=== PATIENT | female | born 1935 | race Caucasian/White ===

== ENCOUNTER 2019-07-04 10:06 | Observation (INO) | payer MEDICARE, BC, SELFPAY ==
[2019-07-04] VITALS (8 sets, daily range): BP systolic 109–140; BP diastolic 56–70; PULSE 66–97; RESP 14–20; TEMP 36.2–37.6; O2SAT 93–98; BMI 20.5
--- NOTE | 2019-07-04 11:18 | ED_ITS ---
HPI - Skin/Abscess/Foreign Bdy <Yulia Vu, [employer] - Last Filed: 07/04/19 16:58> General Chief complaint: Skin/Abscess/Foreign Body Stated complaint: cat bite Time Seen by Provider: 07/04/19 10:08 Source: patient and family Mode of arrival: Ambulatory Limitations: no limitations History of Present Illness HPI narrative: The patient is an 84-year-old female nonsmoker with history of atrial fibrillation on Coumadin who presents with a chief complaint of a cat bite. She had a cat bite on , went to an outside facility on Saturday and was started on Augmentin. She has had 3 doses of Augmentin. She presents because she is concerned about streaking up her arm. The bite is on her wrist, and she has streaking up to assisted up her bicep, which she finds very concerning. She does have some transient nausea, denies any fevers vomiting or diarrhea. She states that her last tetanus was 3 years ago. She states her wrist is swollen, painful, she would like IV antibiotics. The cat is up-to-date on vaccinations. Related Data Home Medications Medication Instructions Recorded Confirmed Daliresp 250 mg PO QDAY #0 06/13/17 07/04/19 Dulera 2 puff INH BID #0 06/13/17 07/04/19 Premarin 0.5 kenan VAGINAL SEE INSTRUCTIONS #0 06/13/17 07/04/19 albuterol sulfate [Proventil HFA] 1 - 2 puff INH Q4HP PRN #0 06/13/17 07/04/19 alprazolam 0.5 mg PO QDAY #0 06/13/17 07/04/19 cetirizine 10 mg PO PRN PRN #0 06/13/17 07/04/19 cholecalciferol (vitamin D3) 2 cap PO QDAY #0 06/13/17 07/04/19 [Vitamin D3] lovastatin 20 mg PO QDAY #0 06/13/17 07/04/19 magnesium oxide 400 mg PO DAILY #0 06/13/17 07/04/19 methylsulfonylmethane 500 mg PO QDAY #0 06/13/17 07/04/19 metoprolol tartrate 37.5 mg PO QDAY #0 06/13/17 07/04/19 multivitamin [Multiple Vitamins] 1 tab PO QDAY #0 06/13/17 07/04/19 nifedipine 15 mg PO QDAY #0 06/13/17 07/04/19 potassium chloride [Klor-Con M20] 20 meq PO BIDCC #0 06/13/17 07/04/19 triamterene-hydrochlorothiazid 1.5 tab PO QDAY #0 06/13/17 07/04/19 warfarin [Coumadin] 5 mg PO DAILY #0 06/13/17 07/04/19 Allergies Allergy/AdvReac Type Severity Reaction Status Date / Time amoxicillin [AMOXICILLIN] Allergy Unknown Verified 07/04/19 12:36 erythromycin base Allergy Unknown Verified 07/04/19 12:36 [ERYTHROMYCIN BASE] levofloxacin [From LEVAQUIN] Allergy Unknown Verified 07/04/19 12:36 Review of Systems <CRISTINE Borrego - Last Filed: 07/04/19 16:58> Review of Systems Narrative: GENERAL: See HPI HEENT: Denies sinus pain, ear pain, sore throat, difficulty swallowing, dizziness. RESPIRATORY: Denies dyspnea, cough, wheezing, hemoptysis, sputum. CARDIOVASCULAR: Denies chest pain, palpitations, orthopnea, edema, GASTROINTESTINAL: See HPI : Denies dysuria, frequency, incontinence, hematuria, urinary retention. MUSCULOSKELETAL: See HPI SKIN: See HPI NEUROLOGIC: Denies weakness, headache, numbness, change in speech, confusion, seizures, incoordination. PSYCHIATRIC: No concerning psychosocial issues. 12 point review of systems is negative except for those stated above Patient History <CRISTINE Borrego - Last Filed: 07/04/19 16:58> Social History household members: none Smoking Status: Former smoker alcohol intake: current Substance Use Type: does not use Exam <CRISTINE Borrego - Last Filed: 07/04/19 16:58> Narrative Exam Narrative: GENERAL: This is a well-nourished, well-developed patient, in no acute distress HEAD: Atraumatic. Normocephalic. No temporal or scalp tenderness. EYES: Pupils equal round and reactive. Extraocular motions intact. No scleral icterus. No injection or drainage. ENT: Nose without bleeding, purulent drainage or septal hematoma. Throat without erythema, tonsillar hypertrophy or exudate. Uvula midline. Airway patent. NECK: Trachea midline. No JVD or lymphadenopathy. Supple, nontender, no meningeal signs. CARDIOVASCULAR: Regular rate and irregular rhythm RESPIRATORY: Clear to auscultation. Breath sounds equal bilaterally. No wheezes, rales, or rhonchi. No cough. No increased respiratory effort. No accessory muscle use. GASTROINTESTINAL: Abdomen soft, non-tender, nondistended. No hepato- splenomegaly, or palpable masses. No guarding. EXTREMITIES: Right wrist has decreased range of motion, decreased flexion and extension. Positive radial pulse. See skin exam. BACK: Nontender without deformity or crepitance. No flank tenderness. NEURO: AOx3. SKIN: Patient has a 1 cm laceration on dorsum of right wrist, no palpable abscess or fluctuance. 10 cm of surrounding erythema, as well as an 10 cm extending up to mid right upper arm along a vein on anterior side. Profuse ecchymosis noted. Initial Vital Signs Initial Vital Signs: Vital Signs Temperature 98.4 F 07/04/19 10:44 Pulse Rate 66 07/04/19 10:44 Respiratory Rate 14 07/04/19 10:44 Blood Pressure 140/70 07/04/19 10:44 Pulse Oximetry 98 07/04/19 10:44 <Raz Amaya DO - Last Filed: 07/04/19 18:27> Initial Vital Signs Initial Vital Signs: Vital Signs Temperature 98.4 F 07/04/19 10:44 Pulse Rate 66 07/04/19 10:44 Respiratory Rate 14 07/04/19 10:44 Blood Pressure 140/70 07/04/19 10:44 Pulse Oximetry 98 07/04/19 10:44 Course <AKANKSHA BorregoBC - Last Filed: 07/04/19 16:58> Orders Ordered: ED Orders 07/04/19 12:07 CT UE RT w con Stat 07/04/19 12:30 Blood Culture Stat Complete Blood Count AUTO DIFF Stat Comprehensive Metabolic Panel Stat Partial Thromboplastin Time Stat Procalcitonin Stat Prothrombin Time INR Stat Acetaminophen (Tylenol) 650 mg PO Q6HR PRN PRN Reason: Fever/Mild Pain (1-3) Albuterol/Ipratropium (Duoneb) 3 ml INH RTQID [facility] Alprazolam (Xanax) 0.5 mg PO DAILY [facility] Budesonide (Pulmicort) 0.5 mg INH RTBID [facility] Meropenem (Merrem) 1 gm in 50 mls @ 100 mls/hr IV Q12H [facility] Last Admin: 07/04/19 16:11 Dose: 100 mls/hr Documented by: ROSS Lovastatin (Mevacor) 20 mg PO 1700 [facility] Metoprolol Tartrate (Lopressor) 37.5 mg PO DAILY [facility] Morphine Sulfate (Morphine) 2 mg IV Q4HR PRN PRN Reason: Pain, Moderate (4-6) Multivitamins (Tab-A-Abdon) 1 tab PO DAILY [facility] Nifedipine (Procardia Xl) 30 mg PO 0700 [facility] Roflumilast [ (Daliresp] 250 Mg) 250 mg PO DAILY [facility] Potassium Chloride (Klor-Con M20) 20 meq PO BIDWM [facility] Triamterene/HCTZ (Maxide 37.5/25) 1.5 tab PO DAILY [facility] Discontinued Medications Metronidazole (Flagyl) 500 mg in 100 mls @ 100 mls/hr IV NOW ONE Stop: 07/04/19 15:39 Last Admin: 07/04/19 16:01 Dose: Not Given Documented by: ROSS Piperacillin/Tazobactam/Dextrose (Zosyn) 3.375 gm in 50 mls @ 100 mls/hr IV NOW ONE Stop: 07/04/19 15:13 Last Infusion: 07/04/19 15:56 Dose: 0 mls/hr Documented by: Admin: 07/04/19 15:15 Dose: 100 mls/hr Documented by: ELI Morphine Sulfate (Morphine) 2 mg IV NOW ONE Stop: 07/04/19 12:09 Last Admin: 07/04/19 12:36 Dose: 2 mg Documented by: ELI Nifedipine (Procardia Xl) 15 mg PO 0700 [facility] Non-Formulary Medication (Mometasone-Formoterol [Dulera]) 2 puff INH BID [facility] Ondansetron HCl (Zofran) 4 mg IV NOW ONE Stop: 07/04/19 12:09 Last Admin: 07/04/19 12:36 Dose: 4 mg Documented by: ELI Phytonadione (Mephyton) 10 mg PO NOW ONE Stop: 07/04/19 14:47 Last Admin: 07/04/19 15:15 Dose: 10 mg Documented by: ELI Vital Signs Vital signs: Vital Signs - 8 hr 07/04/19 10:44 07/04/19 12:53 Temperature 98.4 F Pulse Rate 66 75 Respiratory Rate 14 18 Blood Pressure 140/70 Blood Pressure [Left Arm] 109/56 L Pulse Oximetry 98 93 <Raz Amaya, - Last Filed: 07/04/19 18:27> Orders Ordered: ED Orders 07/04/19 12:07 CT UE RT w con Stat 07/04/19 12:30 Blood Culture Stat Complete Blood Count AUTO DIFF Stat Comprehensive Metabolic Panel Stat Partial Thromboplastin Time Stat Procalcitonin Stat Prothrombin Time INR Stat Acetaminophen (Tylenol) 650 mg PO Q6HR PRN PRN Reason: Fever/Mild Pain (1-3) Albuterol/Ipratropium (Duoneb) 3 ml INH RTQID [facility] Alprazolam (Xanax) 0.5 mg PO DAILY [facility] Budesonide (Pulmicort) 0.5 mg INH RTBID [facility] Meropenem (Merrem) 1 gm in 50 mls @ 100 mls/hr IV Q12H [facility] Last Admin: 07/04/19 16:11 Dose: 100 mls/hr Documented by: ROSS Lovastatin (Mevacor) 20 mg PO 1700 [facility] Metoprolol Tartrate (Lopressor) 37.5 mg PO DAILY [facility] Morphine Sulfate (Morphine) 2 mg IV Q4HR PRN PRN Reason: Pain, Moderate (4-6) Multivitamins (Tab-A-Abdon) 1 tab PO DAILY [facility] Nifedipine (Procardia Xl) 30 mg PO 0700 [facility] Roflumilast [ (Daliresp] 250 Mg) 250 mg PO DAILY [facility] Potassium Chloride (Klor-Con M20) 20 meq PO BIDWM [facility] Triamterene/HCTZ (Maxide 37.5/25) 1.5 tab PO DAILY [facility] Discontinued Medications Metronidazole (Flagyl) 500 mg in 100 mls @ 100 mls/hr IV NOW ONE Stop: 07/04/19 15:39 Last Admin: 07/04/19 16:01 Dose: Not Given Documented by: ROSS Piperacillin/Tazobactam/Dextrose (Zosyn) 3.375 gm in 50 mls @ 100 mls/hr IV NOW ONE Stop: 07/04/19 15:13 Last Infusion: 07/04/19 15:56 Dose: 0 mls/hr Documented by: Admin: 07/04/19 15:15 Dose: 100 mls/hr Documented by: ELI Morphine Sulfate (Morphine) 2 mg IV NOW ONE Stop: 07/04/19 12:09 Last Admin: 07/04/19 12:36 Dose: 2 mg Documented by: ELI Nifedipine (Procardia Xl) 15 mg PO 0700 [facility] Non-Formulary Medication (Mometasone-Formoterol [Dulera]) 2 puff INH BID [facility] Ondansetron HCl (Zofran) 4 mg IV NOW ONE Stop: 07/04/19 12:09 Last Admin: 07/04/19 12:36 Dose: 4 mg Documented by: ELI Phytonadione (Mephyton) 10 mg PO NOW ONE Stop: 07/04/19 14:47 Last Admin: 07/04/19 15:15 Dose: 10 mg Documented by: ELI Vital Signs Vital signs: Vital Signs - 8 hr 07/04/19 10:44 07/04/19 12:53 Temperature 98.4 F Pulse Rate 66 75 Respiratory Rate 14 18 Blood Pressure 140/70 Blood Pressure [Left Arm] 109/56 L Pulse Oximetry 98 93 MDM - Skin/Abscess/Foreign Bdy <MARYANNE Borrego- - Last Filed: 07/04/19 16:58> Lab Data Result diagrams: 07/04/19 12:30 07/04/19 12:30 Labs: Lab Results 07/04/19 07/04/19 07/04/19 Range/Units 12:30 12:30 12:30 WBC 10.7 (4.5-11.0) X10^3/uL RBC 4.08 (4.0-5.2) X10^6/uL Hgb 12.1 (12.0-16.0) g/dL Hct 36.9 (36-46) % MCV 90.4 (80-100) fL MCH 29.7 (26-34) PG MCHC 32.9 (30-36) % RDW 13.2 (11.6-14.8) % Plt Count 189 (150-400) X10^3/uL Neut % (Auto) 85.7 H (50-75) % Lymph % (Auto) 6.7 L (25-40) % Dickenson % (Auto) 6.9 (3-14) % Eos % (Auto) 0.3 L (2-4) % Baso % (Auto) 0.4 (0-2) % Neut # (Auto) 9200 H (0004-0012) /uL Lymph # (Auto) 700 L (9644-2497) /uL Dickenson # (Auto) 700 (0-900) /uL Eos # (Auto) 0 (0-450) /uL Baso # (Auto) 0 (0-100) /uL PT 43.4 H (10.1-12.7) SECONDS INR 3.8 H (0.9-1.3) APTT 48 H (26.4-36.2) SECONDS Sodium (137-145) mmol/L Potassium (3.4-5.1) mmol/L Chloride (98-107) mmol/L Carbon Dioxide (22-32) mmol/L BUN (7-17) mg/dL Creatinine (0.52-1.04) mg/dL Estimated GFR (>60) mL/min BUN/Creatinine Ratio (6-22) Glucose (80-110) mg/dL Calcium (8.4-10.2) mg/dL Total Bilirubin (0.2-1.3) mg/dL AST (14-36) IU/L ALT (<35) IU/L Alkaline Phosphatase (38-126) U/L Total Protein (6.3-8.2) g/dL Albumin (3.5-5.0) g/dL Globulin (1.7-4.1) g/dL Albumin/Globulin Ratio (1.0-2.8) Procalcitonin 0.18 (<0.5) ng/mL 07/04/19 Range/Units 12:30 WBC (4.5-11.0) X10^3/uL RBC (4.0-5.2) X10^6/uL Hgb (12.0-16.0) g/dL Hct (36-46) % MCV (80-100) fL MCH (26-34) PG MCHC (30-36) % RDW (11.6-14.8) % Plt Count (150-400) X10^3/uL Neut % (Auto) (50-75) % Lymph % (Auto) (25-40) % Dickenson % (Auto) (3-14) % Eos % (Auto) (2-4) % Baso % (Auto) (0-2) % Neut # (Auto) (1125-9252) /uL Lymph # (Auto) (1314-8114) /uL Dickenson # (Auto) (0-900) /uL Eos # (Auto) (0-450) /uL Baso # (Auto) (0-100) /uL PT (10.1-12.7) SECONDS INR (0.9-1.3) APTT (26.4-36.2) SECONDS Sodium 136 L (137-145) mmol/L Potassium 4.1 (3.4-5.1) mmol/L Chloride 101 (98-107) mmol/L Carbon Dioxide 25 (22-32) mmol/L BUN 37 H (7-17) mg/dL Creatinine 1.10 H (0.52-1.04) mg/dL Estimated GFR 47.3 L (>60) mL/min BUN/Creatinine Ratio 33.6 H (6-22) Glucose 97 (80-110) mg/dL Calcium 10.1 (8.4-10.2) mg/dL Total Bilirubin 0.7 (0.2-1.3) mg/dL AST 33 (14-36) IU/L ALT 21 (<35) IU/L Alkaline Phosphatase 73 (38-126) U/L Total Protein 7.5 (6.3-8.2) g/dL Albumin 3.9 (3.5-5.0) g/dL Globulin 3.6 (1.7-4.1) g/dL Albumin/Globulin Ratio 1.1 (1.0-2.8) Procalcitonin (<0.5) ng/mL Imaging Data extremity ct : Radiologist's Impression: [address] [place] [id number] Scan Report Signed Patient: Becka Amanda BMR#: [id number] : 5Acct:[id number] Age/Sex: 84 / FDate of Service: 07/04/19 Loc: ED Accession Number: [id number] Procedure: CT UE RT w con Ordering Provider: Yulia Vu PROCEDURE: CT UE RT W CON INDICATIONS: cat bite, worsening TECHNIQUE: After the administration of intravenous contrast, 3 mm axial sections acquired of the left upper extremity from the level of the elbow to the hand, with coronal and sagittal reformats. COMPARISON: None. FINDINGS: Image quality: Diagnostic. Bones: No acute, dislocation, or suspicious osseous lesion is identified involving the osseous structures of the forearm or hand. Additionally, the imaged portions of the elbow are unremarkable. No definite osseous erosions are appreciated. Severe degenerative changes are noted involving the basal joint of the thumb with additional areas of [id number] degenerative change involving the metacarpal phalangeal and interphalangeal joints of the hand. Soft tissues: Moderate subcutaneous edema is identified diffusely throughout the forearm. A small amount of loculated fluid may be present at the level of the wrist, which could potentially be located within some of the extensor tendon sheaths of the wrist. This loculated fluid measures in conglomeration approximately 2.2 x 0.3 x 1.1 cm (image 309, series 6 and image 91, series 3). Prominent subcutaneous vessels are evident throughout, which may represent varicose veins. No definite radiopaque foreign bodies are appreciated. Please note that the ligamentous, tendinous, and cartilaginous structures of the elbow and wrist are not adequately characterized on CT. Chondrocalcinosis of the wrist is noted. IMPRESSION: 1. Subcutaneous edema of the right forearm and hand is suspicious for cellulitis. 2. Small collection of fluid along the dorsal aspect of the wrist may represent a developing abscess or could also potentially represent tenosynovitis involving the extensor tendons of the wrist. The need for dedicated MR imaging of the wrist with contrast may be determined clinically. 3. No acute fractures. 4. Moderate to severe degenerative changes of the wrist and hand. 5. 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 However, clinical correlat ion to exclude calcium pyro-phosphate deposition disease is recommended. Dictated by: Bertrand Low M.D. on 07/04/2019 at 12:57 Approved by: Bertrand Low M.D. on 07/04/2019 at 13:02 [facility] Narrative Medical decision making narrative: The patient is an 84-year-old female who presents with a chief complaint of a cat bite that is failing outpatient therapy. She complains of profuse pain and swelling, as well as extending redness. The patient has taken 3 doses of Augmentin prior to arrival to the emergency department. She denies any systemic symptoms, has no leukocytosis, however exam is very concerning. CT illustrate possible sepsis and or tenosynovitis. Dr. Churchill from [facility] was consulted down to evaluate the patient. Patient is noted to be on Coumadin with an elevated INR. Patient was started on antibiotics in the emergency department. Dr. Green was contacted for admission and kindly agreed to admit patient. Patient was given 10 mg p.o. vitamin K in the emergency department as per hospitalist recommendations. Patient expresses gratitude regarding admission and has no que stions or concerns upon this time. Her tetanus is up-to-date. She was given pain medicine and nausea medicine in the emergency department to help make her more comfortable. <Raz Amaya, DO - Last Filed: 07/04/19 18:27> Lab Data Labs: Lab Results 07/04/19 07/04/19 07/04/19 Range/Units 12:30 12:30 12:30 WBC 10.7 (4.5-11.0) X10^3/uL RBC 4.08 (4.0-5.2) X10^6/uL Hgb 12.1 (12.0-16.0) g/dL Hct 36.9 (36-46) % MCV 90.4 (80-100) fL MCH 29.7 (26-34) PG MCHC 32.9 (30-36) % RDW 13.2 (11.6-14.8) % Plt Count 189 (150-400) X10^3/uL Neut % (Auto) 85.7 H (50-75) % Lymph % (Auto) 6.7 L (25-40) % Dickenson % (Auto) 6.9 (3-14) % Eos % (Auto) 0.3 L (2-4) % Baso % (Auto) 0.4 (0-2) % Neut # (Auto) 9200 H (0393-7581) /uL Lymph # (Auto) 700 L (0766-7731) /uL Dickenson # (Auto) 700 (0-900) /uL Eos # (Auto) 0 (0-450) /uL Baso # (Auto) 0 (0-100) /uL PT 43.4 H (10.1-12.7) SECONDS INR 3.8 H (0.9-1.3) APTT 48 H (26.4-36.2) SECONDS Sodium (137-145) mmol/L Potassium (3.4-5.1) mmol/L Chloride (98-107) mmol/L Carbon Dioxide (22-32) mmol/L BUN (7-17) mg/dL Creatinine (0.52-1.04) mg/dL Estimated GFR (>60) mL/min BUN/Creatinine Ratio (6-22) Glucose (80-110) mg/dL Calcium (8.4-10.2) mg/dL Total Bilirubin (0.2-1.3) mg/dL AST (14-36) IU/L ALT (<35) IU/L Alkaline Phosphatase (38-126) U/L Total Protein (6.3-8.2) g/dL Albumin (3.5-5.0) g/dL Globulin (1.7-4.1) g/dL Albumin/Globulin Ratio (1.0-2.8) Procalcitonin 0.18 (<0.5) ng/mL 07/04/19 Range/Units 12:30 WBC (4.5-11.0) X10^3/uL RBC (4.0-5.2) X10^6/uL Hgb (12.0-16.0) g/dL Hct (36-46) % MCV (80-100) fL MCH (26-34) PG MCHC (30-36) % RDW (11.6-14.8) % Plt Count (150-400) X10^3/uL Neut % (Auto) (50-75) % Lymph % (Auto) (25-40) % Dickenson % (Auto) (3-14) % Eos % (Auto) (2-4) % Baso % (Auto) (0-2) % Neut # (Auto) (0495-1279) /uL Lymph # (Auto) (7782-2832) /uL Dickenson # (Auto) (0-900) /uL Eos # (Auto) (0-450) /uL Baso # (Auto) (0-100) /uL PT (10.1-12.7) SECONDS INR (0.9-1.3) APTT (26.4-36.2) SECONDS Sodium 136 L (137-145) mmol/L Potassium 4.1 (3.4-5.1) mmol/L Chloride 101 (98-107) mmol/L Carbon Dioxide 25 (22-32) mmol/L BUN 37 H (7-17) mg/dL Creatinine 1.10 H (0.52-1.04) mg/dL Estimated GFR 47.3 L (>60) mL/min BUN/Creatinine Ratio 33.6 H (6-22) Glucose 97 (80-110) mg/dL Calcium 10.1 (8.4-10.2) mg/dL Total Bilirubin 0.7 (0.2-1.3) mg/dL AST 33 (14-36) IU/L ALT 21 (<35) IU/L Alkaline Phosphatase 73 (38-126) U/L Total Protein 7.5 (6.3-8.2) g/dL Albumin 3.9 (3.5-5.0) g/dL Globulin 3.6 (1.7-4.1) g/dL Albumin/Globulin Ratio 1.1 (1.0-2.8) Procalcitonin (<0.5) ng/mL Discharge Plan Departure Patient Disposition: Admitted as Observation Clinical Impression: Cat bite Qualifiers: Encounter type: initial encounter Qualified Code(s): W55.01XA - Bitten by cat, initial encounter Cellulitis Qualifiers: Site of cellulitis: extremity Site of cellulitis of extremity: upper extremity Laterality: right Qualified Code(s): L03.113 - Cellulitis of right upper limb Discharge Date/Time: 07/04/19 15:50 Admit Date/Time: 07/04/19 14:49 Admit Provider: Marcellus Green
--- NOTE | 2019-07-04 12:07 | DI.CT.S_ITS ---
PROCEDURE: CT UE RT W CON INDICATIONS: cat bite, worsening TECHNIQUE: After the administration of intravenous contrast, 3 mm axial sections acquired of the left upper extremity from the level of the elbow to the hand, with coronal and sagittal reformats. COMPARISON: None. FINDINGS: Image quality: Diagnostic. Bones: No acute, dislocation, or suspicious osseous lesion is identified involving the osseous structures of the forearm or hand. Additionally, the imaged portions of the elbow are unremarkable. No definite osseous erosions are appreciated. Severe degenerative changes are noted involving the basal joint of the thumb with additional areas of [id number] degenerative change involving the metacarpal phalangeal and interphalangeal joints of the hand. Soft tissues: Moderate subcutaneous edema is identified diffusely throughout the forearm. A small amount of loculated fluid may be present at the level of the wrist, which could potentially be located within some of the extensor tendon sheaths of the wrist. This loculated fluid measures in conglomeration approximately 2.2 x 0.3 x 1.1 cm (image 309, series 6 and image 91, series 3). Prominent subcutaneous vessels are evident throughout, which may represent varicose veins. No definite radiopaque foreign bodies are appreciated. Please note that the ligamentous, tendinous, and cartilaginous structures of the elbow and wrist are not adequately characterized on CT. Chondrocalcinosis of the wrist is noted. IMPRESSION: 1. Subcutaneous edema of the right forearm and hand is suspicious for cellulitis. 2. Small collection of fluid along the dorsal aspect of the wrist may represent a developing abscess or could also potentially represent tenosynovitis involving the extensor tendons of the wrist. The need for dedicated MR imaging of the wrist with contrast may be determined clinically. 3. No acute fractures. 4. Moderate to severe degenerative changes of the wrist and hand. 5. 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 However, clinical correlation to exclude calcium pyro-phosphate deposition disease is recommended. Dictated by: Bertrand Low M.D. on 07/04/2019 at 12:57 Approved by: Bertrand Low M.D. on 07/04/2019 at 13:02
[2019-07-04] MEDS: ONDANSETRON 4 MG/2 ML INJ IV (12:36)
[2019-07-04] MEDS: MORPHINE 2 MG/ML INJ IV (12:36)
[2019-07-04 12:40] LABS: Add Manual Diff / Slide Review NO; Basophils Absolute Auto 0 /uL (0-100); Basophils Percent Auto 0.4 % (0-2); Eosinophils Absolute Auto 0 /uL (0-450); Eosinophils Percent Auto 0.3 % (2-4); Hematocrit 36.9 % (36-46); Hemoglobin 12.1 g/dL (12.0-16.0); Lymphocytes Absolute Auto 700 /uL (1100-4500); Lymphocytes Percent Auto 6.7 % (25-40); Mean Corpuscular HGB Conc 32.9 % (30-36); Mean Corpuscular Hemoglobin 29.7 PG (26-34); Mean Corpuscular Volume 90.4 fL (80-100); Monocytes Absolute Auto 700 /uL (0-900); Monocytes Percent Auto 6.9 % (3-14); Neutrophils Absolute Auto 9200 /uL (1500-7000); Neutrophils Percent Auto 85.7 % (50-75); Platelet Count 189 X10^3/uL (150-400); Red Blood Cell Count 4.08 X10^6/uL (4.0-5.2); Red Cell Distribution Width 13.2 % (11.6-14.8); White Blood Cell Count 10.7 X10^3/uL (4.5-11.0)
[2019-07-04 12:52] LABS: INR 3.8 (0.9-1.3); Prothrombin Time 43.4 SECONDS (10.1-12.7)
[2019-07-04 12:55] LABS: Alanine Aminotransferase 21 IU/L (<35); Albumin 3.9 g/dL (3.5-5.0); Albumin Globulin Ratio 1.1 (1.0-2.8); Alkaline Phosphatase 73 U/L (38-126); Aspartate Aminotransferase 33 IU/L (14-36); BUN Creatinine Ratio 33.6 (6-22); Bilirubin Total 0.7 mg/dL (0.2-1.3); Blood Urea Nitrogen 37 mg/dL (7-17); Calcium 10.1 mg/dL (8.4-10.2); Carbon Dioxide 25 mmol/L (22-32); Chloride 101 mmol/L (98-107); Estimated Glomerular Filt Rate 47.3 mL/min (>60); Globulin 3.6 g/dL (1.7-4.1); Glucose 97 mg/dL (80-110); HEMOLYSIS < 15 (0-50); PTT Partial Thromboplastin Tim 48 SECONDS (26.4-36.2); Potassium 4.1 mmol/L (3.4-5.1); Sodium 136 mmol/L (137-145); Total Protein 7.5 g/dL (6.3-8.2)
[2019-07-04 13:17] LABS: Procalcitonin 0.18 ng/mL (<0.5)
--- NOTE | 2019-07-04 14:41 | PC.NURSE ---
Patient was bit by cat two nights ago on right wrist. Seen at [facility] and given Augmentin. Today returns after two doses of antibiotics and right arm is red and swollen up to elbow.
--- NOTE | 2019-07-04 14:57 | P.HP_ITS ---
History of Present Illness History of Present Illness Date Patient Seen: 07/04/19 Time Patient Seen: 14:41 Chief complaint: cat bite Narrative: This is a pleasant 84-year-old female who sustained a bite to her right arm from her Cat. She was seen yesterday and given antibiotics. She notes that it is getting worse with increased redness and some streaking up her right arm. She notes that the CT is known to her and is up-to-date on its shots. The CAT has a history of biting her in the past. She says that the CT no longer lives with her. She has a history of atrial fibrillation and is chronically on Coumadin. She notes that her INR was reportedly 2.5 yesterday. Patient History Family & Social History Safety & Behavioral: Feels Safe in Current Yes Environment Tobacco & Substance use: Substance Use Type does not use Meds Home Medications and Allergies Home Medications Medication Instructions Recorded Confirmed Type albuterol sulfate [Proventil HFA] 1 - 2 puff INH Q4HP PRN #0 06/13/17 History alprazolam 0.5 mg PO QDAY #0 06/13/17 History cetirizine PO PRN PRN #0 06/13/17 History cholecalciferol (vitamin D3) 2 cap PO QDAY #0 06/13/17 History [Vitamin D3] conjugated estrogens [Premarin] 0.5 kenan VAGINAL SEE INSTRUCTIONS #0 06/13/17 History doxycycline hyclate 100 mg PO #0 06/13/17 History lovastatin 20 mg PO QDAY #0 06/13/17 History magnesium oxide 400 mg PO #0 06/13/17 History methylsulfonylmethane PO QDAY #0 06/13/17 History metoprolol tartrate 37.5 mg PO QDAY #0 06/13/17 History mometasone-formoterol [Dulera] 2 puff INH BID #0 06/13/17 History multivitamin [Multiple Vitamins] 1 tab PO QDAY #0 06/13/17 History nifedipine 15 mg PO QDAY #0 06/13/17 History potassium chloride [Klor-Con M20] 20 meq PO BIDCC #0 06/13/17 History prednisone #0 06/13/17 History ranitidine HCl 150 mg PO BID #0 06/13/17 History roflumilast [Daliresp] 250 mg PO QDAY #0 06/13/17 History triamterene-hydrochlorothiazid 1.5 tab PO QDAY #0 06/13/17 History warfarin [Coumadin] #0 06/13/17 History Allergies Allergy/AdvReac Type Severity Reaction Status Date / Time amoxicillin [AMOXICILLIN] Allergy Unknown Verified 07/04/19 12:36 erythromycin base Allergy Unknown Verified 07/04/19 12:36 [ERYTHROMYCIN BASE] levofloxacin [From LEVAQUIN] Allergy Unknown Verified 07/04/19 12:36 Review of Systems Review of Systems Narrative: Denies fevers or chills recently, notes that she is having increasing right arm pain but does not note significant malaise, she has a history of COPD but does not currently smoke and does not feel short of breath. She has chronic atrial fibrillation but has not had any recent chest pain or palpitations. Denies any recent change in her bowel movements or urination. She is [id number]. Exam Vital Signs (past 8 hours): - 07/04/19 10:44 07/04/19 12:53 Temperature 98.4 F Pulse Rate 66 75 Respiratory Rate 14 18 Blood Pressure 140/70 Blood Pressure [Left Arm] 109/56 L Pulse Oximetry 98 93 Oxygen Delivery Method Room Air Narrative Exam Narrative: HEENT is benign, neck is supple, she is alert she is oriented does not appear to be in severe distressed, lungs are clear, cor is regular, ab domen soft and benign, her right upper extremity shows marked bruising on the dorsum of her right arm with extension into the mid forearm and some slight streaking proximally, there is no significant axillary nodes, she is able to fire finger flexors and extensors she does have some pain with maximum active flexion but no significant weakness, there is obvious swelling on the dorsum of her wrist but not a well collected fluid pouch, there is a transverse laceration on the dorsum of her hand on the ulnar side. There is erythema along the wound edge but no active drainage. Objective Labs Result Diagrams: 07/04/19 12:30 07/04/19 12:30 Labs: Laboratory Results - last 24 hr 07/04/19 07/04/19 07/04/19 12:30 12:30 12:30 WBC 10.7 RBC 4.08 Hgb 12.1 Hct 36.9 MCV 90.4 MCH 29.7 MCHC 32.9 RDW 13.2 Plt Count 189 Neut % (Auto) 85.7 H Lymph % (Auto) 6.7 L [place] % (Auto) 6.9 Eos % (Auto) 0.3 L Baso % (Auto) 0.4 Neut # (Auto) 9200 H Lymph # (Auto) 700 L [place] # (Auto) 700 Eos # (Auto) 0 Baso # (Auto) 0 PT 43.4 H INR 3.8 H APTT 48 H Sodium Potassium Chloride Carbon Dioxide BUN Creatinine Estimated GFR BUN/Creatinine Ratio Glucose Calcium Total Bilirubin AST ALT Alkaline Phosphatase Total Protein Albumin Globulin Albumin/Globulin Ratio Procalcitonin 0.18 07/04/19 12:30 WBC RBC Hgb Hct MCV MCH MCHC RDW Plt Count Neut % (Auto) Lymph % (Auto) [place] % (Auto) Eos % (Auto) Baso % (Auto) Neut # (Auto) Lymph # (Auto) [place] # (Auto) Eos # (Auto) Baso # (Auto) PT INR APTT Sodium 136 L Potassium 4.1 Chloride 101 Carbon Dioxide 25 BUN 37 H Creatinine 1.10 H Estimated GFR 47.3 L BUN/Creatinine Ratio 33.6 H Glucose 97 Calcium 10.1 Total Bilirubin 0.7 AST 33 ALT 21 Alkaline Phosphatase 73 Total Protein 7.5 Albumin 3.9 Globulin 3.6 Albumin/Globulin Ratio 1.[address] scan show soft tissue swelling of her right arm but no well loculated abscess. No significant gas formation. Assessment & Plan Assessment & Plan narrative: Right upper extremity cat bite with cellulitis but no abscess at this point which required surgical drainage, chronic atrial fibrillation with chronic Coumadin it is a [facility] over anticoagulated with substantial bruising in the right upper extremity. Recomm endations and plan I have recommended that she be admitted for IV antibiotics and observation. I told the patient that she likely will respond to IV antibiotics and observation but if she develops evidence of a fluid collection or a progressive abscess formation she may require irrigation and debridement. I discussed her with the hospitalist and were going to attempt to pick an antibiotic but does not severely interfere with her anticoagulation status and is appropriate for a cat bite. I will re-evaluate her tomorrow unless she has acute worsening.
[2019-07-04] MEDS: PHYTONADIONE (VIT K1) 5 MG TABLET 10 MG PO (15:15)
[2019-07-04] MEDS: PIPERACILLIN-TAZO 3.375 GM/50 ML FROZ.PIGGY IV (15:15)
--- NOTE | 2019-07-04 15:58 | PM.HP.1 ---
History of Present Illness History of Present Illness Date Patient Seen: 07/04/19 Time Patient Seen: 16:02 Chief complaint: cat bite Narrative: Becka Amanda is an 84 year old female with severe COPD (on home O2 at night only), raynaud's, HTN, afib on coumadin who presented with worsening swelling in her right arm. Patient states that she suffered a cat bite 2 days ago. She went to an outside ER, who gave her Augmentin and discharged her home. She has a previous history of a cat bite requiring IV antibiotics. She took her Augmentin but the swelling continued to increase, ultimately up past her right elbow and down to her fingers, while the bite is on the forearm. Her cat is up-to-date on vaccinations. She does complain of decreased flexion in her fingers, but no numbness or tingling. There is marked swelling and redness. She denies any fevers or chills. She was nauseous on the drive to the emergency room, but did not have any emesis. She denies any abdominal pain, dysuria or urinary frequency. She denies any chest pain. She has no worsening or acute shortness of breath, but she is chronically short of breath and has difficulty going up any stairs at all due to her COPD. In the ER, she was mildly hypertensive but otherwise her vital signs were unremarkable. Her blood pressure has improved as well with pain control. She had a CT scan of her right upper extremity which showed a small collection of fluid along the dorsal aspect of the wrist may represent a developing abscess or could also potentially represent tenosynovitis involving the extensor tendons of the wrist. The need for dedicated MR imaging of the wrist with contrast may be determined clinically.She was seen by Dr. Churchill orthopedic surgery, who recommended admission for IV antibiotics as well as vitamin K for her elevated INR and potentially may take the patient to the operating room tomorrow. Patient History Family & Social History Safety & Behavioral: Feels Safe in Current Yes Environment Tobacco & Substance use: Substance Use Type does not use Meds Home Medications and Allergies Home Medications Medication Instructions Recorded Confirmed Type Daliresp 250 mg PO QDAY #0 06/13/17 07/04/19 History Dulera 2 puff INH BID #0 06/13/17 07/04/19 History Premarin 0.5 kenan VAGINAL SEE INSTRUCTIONS #0 06/13/17 07/04/19 History albuterol sulfate [Proventil HFA] 1 - 2 puff INH Q4HP PRN #0 06/13/17 07/04/19 History alprazolam 0.5 mg PO QDAY #0 06/13/17 07/04/19 History cetirizine 10 mg PO PRN PRN #0 06/13/17 07/04/19 History cholecalciferol (vitamin D3) 2 cap PO QDAY #0 06/13/17 07/04/19 History [Vitamin D3] lovastatin 20 mg PO QDAY #0 06/13/17 07/04/19 History magnesium oxide 400 mg PO DAILY #0 06/13/17 07/04/19 History methylsulfonylmethane 500 mg PO QDAY #0 06/13/17 07/04/19 History metoprolol tartrate 37.5 mg PO QDAY #0 06/13/17 07/04/19 History multivitamin [Multiple Vitamins] 1 tab PO QDAY #0 06/13/17 07/04/19 History nifedipine 15 mg PO QDAY #0 06/13/17 07/04/19 History potassium chloride [Klor-Con M20] 20 meq PO BIDCC #0 06/13/17 07/04/19 History triamterene-hydrochlorothiazid 1.5 tab PO QDAY #0 06/13/17 07/04/19 History warfarin [Coumadin] 5 mg PO DAILY #0 06/13/17 07/04/19 History Allergies Allergy/AdvReac Type Severity Reaction Status Date / Time amoxicillin [AMOXICILLIN] Allergy Unknown Verified 07/04/19 12:36 erythromycin base Allergy Unknown Verified 07/04/19 12:36 [ERYTHROMYCIN BASE] levofloxacin [From LEVAQUIN] Allergy Unknown Verified 07/04/19 12:36 Review of Systems Review of Systems Narrative: All other systems reviewed with the patient and are negative unless otherwise stated. Exam Vital Signs (past 8 hours): - 07/04/19 10:44 07/04/19 12:53 07/04/19 15:47 Temperature 98.4 F Pulse Rate 66 75 74 Respiratory Rate 14 18 20 Blood Pressure 140/70 Blood Pressure [Left Arm] 109/56 L 136/63 Pulse Oximetry 98 93 94 Oxygen Delivery Method Room Air Narrative Exam Narrative: GENERAL APPEARANCE: Well developed, well nourished, elderly female in no acute distress. SKIN: Inspection of the skin reveals a small laceration on her right forearm that is healed. There is no evidence of induration or potential abscess at this time. She does have marked erythema over her right forearm that extends down to her wrist and metacarpal joints up to her right elbow. There is also some tracking of erythema along lymphatic channels up to her rigt armpit. HEENT: The sclerae were anicteric and conjunctivae were pink and moist. Extraocular movements were intact and pupils were equal, round with normal accommodation. External inspection of the ears and nose showed no scars, lesions, or masses. Lips, teeth, and gums showed normal mucosa. The oral mucosa, hard and soft palate, tongue and posterior pharynx were unremarkable. NECK: Supple and symmetric. There was no thyroid enlargement, and no tenderness, or masses were felt. CHEST: Normal AP diameter and normal contour with mildly increased kyphosis. LUNGS: Auscultation of the lungs revealed no wheezes, rhonchi, or rales. CARDIOVASCULAR: There was a regular rate and rhythm without any murmurs, gallops, rubs. Peripheral pulses were 2+ and symmetric. ABDOMEN: Soft and nontender with normal bowel sounds. No ascites was noted. MUSCULOSKELETAL: Very tender over the area of erythema, with warmth. 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 There is mildly diminished flexion in her right four fingers (not including thumb) EXTREMITIES: No cyanosis, clubbing or edema. Right upper extremity as noted above. NEUROLOGIC: Alert and oriented x 3. Normal affect. Gait was normal. Strength is +5/5 in the Upper Extremities and Lower Extremities Bilaterally. Sensation to touch was normal. Objective ECG Impression: No prior EKGs for comparison. There is a right bundle branch block. Is normal sinus rhythm with a rate of 84. She has T-wave inversions in V1 and V2. She also has lateral ST depressions in V5 through V6 and [address] upper extremity: Radiologist's impression: 1. Subcutaneous edema of the right forearm and hand is suspicious for cellulitis. 2. Small collection of fluid along the dorsal aspect of the wrist may represent a developing abscess or could also potentially represent tenosynovitis involving the extensor tendons of the wrist. The need for dedicated MR imaging of the wrist with contrast may be determined clinically. 3. No acute fractures. 4. Moderate to severe degenerative changes of the wrist and hand. 5. 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 However, clinical correlation to exclude calcium pyro-phosphate deposition disease is recommended. Labs Result Diagrams: 07/04/19 12:30 07/04/19 12:30 Labs: Laboratory Results - last 24 hr 07/04/19 07/04/19 07/04/19 12:30 12:30 12:30 WBC 10.7 RBC 4.08 Hgb 12.1 Hct 36.9 MCV 90.4 MCH 29.7 MCHC 32.9 RDW 13.2 Plt Count 189 Neut % (Auto) 85.7 H Lymph % (Auto) 6.7 L [place] % (Auto) 6.9 Eos % (Auto) 0.3 L Baso % (Auto) 0.4 Neut # (Auto) 9200 H Lymph # (Auto) 700 L [place] # (Auto) 700 Eos # (Auto) 0 Baso # (Auto) 0 PT 43.4 H INR 3.8 H APTT 48 H Sodium Potassium Chloride Carbon Dioxide BUN Creatinine Estimated GFR BUN/Creatinine Ratio Glucose Calcium Total Bilirubin AST ALT Alkaline Phosphatase Total Protein Albumin Globulin Albumin/Globulin Ratio Procalcitonin 0.18 07/04/19 12:30 WBC RBC Hgb Hct MCV MCH MCHC RDW Plt Count Neut % (Auto) Lymph % (Auto) [place] % (Auto) Eos % (Auto) Baso % (Auto) Neut # (Auto) Lymph # (Auto) [place] # (Auto) Eos # (Auto) Baso # (Auto) PT INR APTT Sodium 136 L Potassium 4.1 Chloride 101 Carbon Dioxide 25 BUN 37 H Creatinine 1.10 H Estimated GFR 47.3 L BUN/Creatinine Ratio 33.6 H Glucose 97 Calcium 10.1 Total Bilirubin 0.7 AST 33 ALT 21 Alkaline Phosphatase 73 Total Protein 7.5 Albumin 3.9 Globulin 3.6 Albumin/Globulin Ratio 1.1 Procalcitonin Assessment & Plan Assessment & Plan narrative: Becka Amanda is an 84 year old female with severe COPD (on home O2 at night only), raynaud's, HTN, afib on coumadin who presented with worsening swelling in her right arm after a cat bite 2 days ago. She failed outpatient antibiotic therapy with Augmentin, and CT scan did show possible developing abscess. She is admitted for IV antibiotics, with possible orthopedic interventions tomorrow. 1. Right upper extremity cellulitis, acute, present on admission -developed after suffering a cat bite 2 days ago. She was trialed with outpatient Augmentin, but failed this therapy. -CT right upper extremity: Subcutaneous edema of the right forearm and hand is suspicious for cellulitis. Small collection of fluid along the dorsal aspect of the wrist may represent adeveloping abscess or could also potentially represent tenosynovitis involving the extensor tendons of the wrist. The need for dedicated MR imaging of the wrist with contrast may be determined clinically. No acute fractures. Moderate to severe degenerative changes of the wrist and hand. 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 However, clinical correlation to exclude calcium pyro-phosphate deposition disease is recommended. -no leukocytosis on admission, procalcitonin was 0.18. -have selected meropenem at this time given that other antibiotics will interfere with her Coumadin and potentially raise her INR, which would not be ideal going in to a possible surgery tomorrow. Current dosing is 1 g q.12 hours based on her renal function. -appreciate management by Dr. Churchill of orthopedic surgery -NPO at midnight in case of possible operative interventions tomorrow -patient was given 10 mg of vitamin K, and Coumadin will be held. Will repeat INR in the morning. -EKG showing a right bundle branch block with ST depressions in lateral leads, but upright T-waves. Will repeat her EKG to ensure no changes. She denies any chest pain and she does not have any worsening dyspnea on exertion compared to her usual baseline from COPD. -pain control with Tylenol, morphine as needed for severe pain 2. Severe COPD, chronic, stable -patient uses Dulera inhaler at home. Will substitute with DuoNebs and Pulmicort, with albuterol as needed. -respiratory therapy eval and treat -continue home Daliresp, which is non-formulary if patient can bring from home. 3. Supratherapeutic INR, acute, present on admission - -INR 3.8 on admission. Given vitamin K for possible surgical interventions tomorrow. Will hold Coumadin tonight 4. Paroxysmal Atrial fibrillation, chronic, stable -continue home beta-yolanda -hold home Coumadin as noted above - EKG normal sinus rhythm. 5. Elevated creatinine -unknown baseline creatinine, estimated GFR is 47. -continue to renally dose medications as noted above. 6., hypertension, chronic, stable -will hold home triamterene HCTZ for tomorrow in anticipation of possible operative interventions -she is on nifedipine for Raynaud's which will get continued. Her home doses listed as 15 mg, which should not be possible unless she is splitting the tablet. Will continue 30 mg here. Code: Full, however patient does have an advanced directive and does not recall how she marked this. She likes her surrogate decision maker as her son. She states she will have someone bring in her advance directive. Dispo: Admitted as observation at this time, pending operative interventions, and response to antibiotic therapy
[2019-07-04] MEDS: MEROPENEM 1 GM/50 ML PIGGYBACK IV (16:11)
[2019-07-04] MEDS: ALBUTEROL/IPRATROPIUM 3 ML AMPUL INH (19:29)
[2019-07-04] MEDS: BUDESONIDE 0.5 MG/2 ML NEB INH (19:30)
[2019-07-05] VITALS (14 sets, daily range): BP systolic 99–144; BP diastolic 52–80; PULSE 72–137; RESP 16–18; TEMP 36.7–37.5; O2SAT 92–97
[2019-07-05] MEDS: MORPHINE 2 MG/ML INJ IV (01:38)
[2019-07-05] MEDS: ACETAMINOPHEN 325 MG TABLET 650 MG PO ×2 (01:38→20:06)
[2019-07-05] MEDS: METOPROLOL IR 25 MG TABLET 37.5 MG PO ×2 (02:57→10:16)
[2019-07-05] MEDS: MEROPENEM 1 GM/50 ML PIGGYBACK IV ×2 (04:01→15:34)
--- NOTE | 2019-07-05 04:32 | PC.NURSE ---
VSS, lung sounds clear. Patient is on 2 liters O2, which she uses at home at night. Intermittent non productive cough. Patient having some pain on this shift at one point said pain level was 10/10 on R arm. Patient medicated with tylenol 650mg and 2 mg morphine. Patient re-evaluated and pain has improved and she was able to sleep. Discussed using Left arms for BP's since Rgt arm is too sensitive and painful. Patient is on Tele:NS New IV started on this shift, L dorsal wrist/forearm, previous site was compromised. Patient is able to ambulate to bathroom stand by assist. Bed is low and locked, call light within reach, bed alarm on.
[2019-07-05 05:53] LABS: Add Manual Diff / Slide Review NO; Basophils Absolute Auto 0 /uL (0-100); Basophils Percent Auto 0.5 % (0-2); Eosinophils Absolute Auto 100 /uL (0-450); Eosinophils Percent Auto 1.4 % (2-4); Hemoglobin 10.8 g/dL (12.0-16.0); INR 3.2 (0.9-1.3); Lymphocytes Absolute Auto 700 /uL (1100-4500); Lymphocytes Percent Auto 10.4 % (25-40); Mean Corpuscular HGB Conc 33.7 % (30-36); Mean Corpuscular Hemoglobin 30.1 PG (26-34); Mean Corpuscular Volume 89.3 fL (80-100); Monocytes Absolute Auto 600 /uL (0-900); Monocytes Percent Auto 8.9 % (3-14); Neutrophils Absolute Auto 5200 /uL (1500-7000); Neutrophils Percent Auto 78.8 % (50-75); Platelet Count 163 X10^3/uL (150-400); Prothrombin Time 36.1 SECONDS (10.1-12.7); Red Blood Cell Count 3.58 X10^6/uL (4.0-5.2); White Blood Cell Count 6.7 X10^3/uL (4.5-11.0)
[2019-07-05 05:56] LABS: PTT Partial Thromboplastin Tim 43 SECONDS (26.4-36.2)
[2019-07-05 05:58] LABS: BUN Creatinine Ratio 26.4 (6-22); Blood Urea Nitrogen 29 mg/dL (7-17); Carbon Dioxide 25 mmol/L (22-32); Chloride 101 mmol/L (98-107); Estimated Glomerular Filt Rate 47.3 mL/min (>60); Glucose 92 mg/dL (80-110); HEMOLYSIS < 15 (0-50); Magnesium 1.9 mg/dL (1.6-2.3); Potassium 3.9 mmol/L (3.4-5.1); Sodium 134 mmol/L (137-145)
--- NOTE | 2019-07-05 07:52 | RT ---
Patient declined her nebulizer treatments this morning. She said last night they made her cough and her throat sore. She only takes 2 puffs of Dulera at home twice a day. Her breath sounds are clear and diminished. She has taken her oxygen off for the day. She only wears oxygen at night when she is at home. O2 saturations are 94% on room air.No distress noted. Patient got short of breath when she got up to the bathroom. When she got back into bed she was 76% on room air, but recovered in just a couple of minutes.
[2019-07-05] MEDS: POTASSIUM CHLORIDE 20 MEQ TAB PO ×2 (08:26→16:56)
[2019-07-05] MEDS: MULTIVITAMIN 1 TABLET 1 TAB PO (08:26)
--- NOTE | 2019-07-05 09:28 | P.PN_ITS ---
Subjective Subjective Date Patient Seen: 07/05/19 Interval history: Becka Amanda is an 84-year-old female with a past medical history significant for hypertension, atrial fibrillation on warfarin, severe COPD on nocturnal oxygen, and who presented to the ED with worsening swelling in her right arm after she was bitten by her cat bite. The patient is resting in bed comfortably. She reports her right arm cellulitis and associated pain has improved since yesterday. She endorses mild sore throat that she believes is related to postnasal drip. She has no other complaints and denies headache, shortness of breath, chest pain, abdominal pain, nausea, vomiting, fever, chills, dysuria, or diarrhea. She is voiding without difficulty. She has not had a bowel movement since the day prior to admission and a bowel regimen has been implemented. She is up ambulating without assistan ce. Exam Vital Signs (past 8 hours): - 07/05/19 02:00 07/05/19 03:00 07/05/19 06:00 Temperature 98.1 F Pulse Rate 78 Respiratory Rate 16 Blood Pressure 99/52 L Pulse Oximetry 97 97 97 07/05/19 07:28 07/05/19 07:55 Temperature 98.2 F Pulse Rate 82 Respiratory Rate 16 Blood Pressure 117/61 Pulse Oximetry 95 94 Oxygen Delivery Method Room Air Oxygen Flow Rate 1 Narrative Exam Narrative: General: Older female lying in bed and in no acute distress, well-developed, well-nourished, appropriately interactive. HEENT: Normocephalic, atraumatic. External ears without defect. Pupils equal, round, and reactive to light . Anicteric sclerae, moist conjunctivae, and no l id lag. Oropharynx with mild erythema, no exudate, and moist mucosa. Neck: Supple with full range of motion. No jugular venous distension. No bruits. No lymphadenopathy or thyromegaly. Cardiovascular: Regular rate and rhythm without murmurs, rubs, or gallops appreciated Pulmonary: Clear to auscultation bilaterally without crackles, wheezes, or rhonchi. Normal respiratory effort with no use of accessory muscles. Abdomen: Soft, bowel sounds present, nontender, nondistended. No hepatosplenome briana or masses appreciated. Extremities: No clubbing, cyanosis, or edema. Erythema and warmth of dorsal aspect of right hand up to mid forearm with mild tenderness to palpation and bite pk on lateral aspect of right hand. No obvious fluctuant mass or fluid collection. Skin: Normal temperature, turgor, and texture; no rash, ulcers, or subcutaneous nodules appreciated. Neurological: Cranial nerves grossly intact. Psychiatric: Normal mood and affect. Alert and oriented to person, place, and t celsa. Objective Labs Result Diagrams: 07/05/19 05:12 07/05/19 05:12 Labs: Laboratory Results - last 24 hr 07/04/19 07/04/19 07/04/19 12:30 12:30 12:30 WBC 10.7 RBC 4.08 Hgb 12.1 Hct 36.9 MCV 90.4 MCH 29.7 MCHC 32.9 RDW 13.2 Plt Count 189 Neut % (Auto) 85.7 H Lymph % (Auto) 6.7 L [place] % (Auto) 6.9 Eos % (Auto) 0.3 L Baso % (Auto) 0.4 Neut # (Auto) 9200 H Lymph # (Auto) 700 L [place] # (Auto) 700 Eos # (Auto) 0 Baso # (Auto) 0 PT 43.4 H INR 3.8 H APTT 48 H Sodium Potassium Chloride Carbon Dioxide BUN Creatinine Estimated GFR BUN/Creatinine Ratio Glucose Calcium Magnesium Total Bilirubin AST ALT Alkaline Phosphatase Total Protein Albumin Globulin Albumin/Globulin Ratio Procalcitonin 0.18 07/04/19 07/05/19 07/05/19 12:30 05:12 05:12 WBC 6.7 RBC 3.58 L Hgb 10.8 L Hct 32.0 L MCV 89.3 MCH 30.1 MCHC 33.7 RDW 13.0 Plt Count 163 Neut % (Auto) 78.8 H Lymph % (Auto) 10.4 L [place] % (Auto) 8.9 Eos % (Auto) 1.4 L Baso % (Auto) 0.5 Neut # (Auto) 5200 Lymph # (Auto) 700 L [place] # (Auto) 600 Eos # (Auto) 100 Baso # (Auto) 0 PT 36.1 H D INR 3.2 H APTT 43 H D Sodium 136 L Potassium 4.1 Chloride 101 Carbon Dioxide 25 BUN 37 H Creatinine 1.10 H Estimated GFR 47.3 L BUN/Creatinine Ratio 33.6 H Glucose 97 Calcium 10.1 Magnesium Total Bilirubin 0.7 AST 33 ALT 21 Alkaline Phosphatase 73 Total Protein 7.5 Albumin 3.9 Globulin 3.6 Albumin/Globulin Ratio 1.1 Procalcitonin 07/05/19 05:12 WBC RBC Hgb Hct MCV MCH MCHC RDW Plt Count Neut % (Auto) Lymph % (Auto) [place] % (Auto) Eos % (Auto) Baso % (Auto) Neut # (Auto) Lymph # (Auto) [place] # (Auto) Eos # (Auto) Baso # (Auto) PT INR APTT Sodium 134 L Potassium 3.9 Chloride 101 Carbon Dioxide 25 BUN 29 H Creatinine 1.10 H Estimated GFR 47.3 L BUN/Creatinine Ratio 26.4 H Glucose 92 Calcium 9.0 Magnesium 1.9 Total Bilirubin AST ALT Alkaline Phosphatase Total Protein Albumin Globulin Albumin/Globulin Ratio Procalcitonin Assessment & Plan Assessment & Plan narrative: Becka Amanda is an 84-year-old female with a past medical history significant for hypertension, atrial fibrillation on warfarin, severe COPD on nocturnal oxygen, and who presented to the ED with worsening swelling in her right arm after she was bitten by her cat bite. 1. Acute right upper extremity cellulitis, present on admission. Active. -Patient developed worsening cellulitis after a cat bite 2 days ago. She failed outpatient Augmentin. -CT right upper extremity demonstrated subcutaneous edema of the right forearm and hand suspicious for cellulitis with small collection of fluid along the dorsal aspect of the wrist. Moderate to severe degenerative changes of the wrist and hand. 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 However, clinical correlation to exclude calcium pyro-phosphate deposition disease is recommended. -No leukocytosis and procalcitonin negative at 0.18. Continue to monitor WBC daily. -Received vitamin K 10 mg PO x1 in ED to reverse warfarin for possible surgical intervention. Held warfarin. -Continue acetaminophen 650 mg every 6 hours as needed for mild pain and hydrocodone 5-325 mg every 4 hours as needed for moderate to severe pain. Implemented bowel regimen to avoid opiate induced constipation. -Continue to elevate extremity above level of the heart frequently and as much as tolerated. -Continue meropenem 1 g every 12 hours for broad-spectrum antibiotic coverage including anaerobes due to several antibiotic allergic reactions and interference with warfarin metabolism. -Consulted orthopedic surgery, Dr. Churchill, who does not recommend surgical intervention at this time. We appreciate her time and care of the patient. 2. Severe COPD, chronic, present on admission. Stable. -Does not represent acute COPD exacerbation. -Continue home Dulera 2 puffs twice daily, albuterol inhaler 1-2 puffs every 4 hours as needed for shortness of breath and Daliresp if able to bring in from home. -Continue respiratory therapy evaluation and treatment. 3. Supratherapeutic INR, acute, present on admission. Active. -INR supratherapeutic at 3.8 on admission. Received vitamin K 10 mg PO for possible surgical interventions today. INR 3.2. Continue to hold warfarin. 4. Paroxysmal atrial fibrillation and SVT, chronic, present on admission. Stable. -Patient is currently in sinus rhythm. -Continue metoprolol tartrate 25 mg twice daily. -Held warfarin for possible surgical intervention. 5. Chronic kidney disease stage 3, present on admission. Stable. -Unknown baseline creatinine. Initial creatinine 1.10 and estimated GFR is 47 which is stable. -Continue to avoid nephrotoxin agents and renally dose medications as noted above. -Continue to monitor creatinine periodically. 6. Hypertension, chronic, present on admission. Stable. -Held triamterene and hydrochlorothiazide for possible operative interventions and labile blood pressure. -Continue nifedipine 15 mg daily (extended release is not suppose to be crushed/split and patient and PCP aware) which is used for Raynaud's and will be continued. Code: Full code. Patient does have an advanced directive and does not recall how she marked this. Her surrogate decision maker is her son. She states she will have someone bring in her advance directive. Disposition: Patient will likely discharge home in 1-2 days once cellulitis is adequately treated.
[2019-07-05] MEDS: SODIUM CHLORIDE 0.9% FLUSH 10 ML IV ×2 (10:12→20:03)
[2019-07-05] MEDS: NIFEdipine 30 MG TAB ER 15 MG PO (11:55)
--- NOTE | 2019-07-05 12:04 | P.PN_ITS ---
Subjective Subjective Date Patient Seen: 07/05/19 Time Patient Seen: 11:04 Interval history: Becka notes that she is doing reasonably well she still is having pain into the wrist but is slightly improved in comparison to previously. We have reconfirmed that the CAT is no longer living with her. Exam Vital Signs (past 8 hours): - 07/05/19 06:00 07/05/19 07:28 07/05/19 07:55 Temperature 98.2 F Pulse Rate 82 Respiratory Rate 16 Blood Pressure 117/61 Pulse Oximetry 97 95 94 07/05/19 08:00 07/05/19 10:16 Temperature 98.3 F Pulse Rate 137 H Respiratory Rate 16 Blood Pressure 144/80 H Pulse Oximetry 96 96 Oxygen Delivery Method Room Air Oxygen Flow Rate 0 Narrative Exam Narrative: Slight decreased erythema and the right upper extremity full range of motion in nerve finger flexors and extensors swelling on the dorsum of her right wrist and slight decreased range of motion into the right wrist, a mild streaking along her lymphatics on the medial aspect of her arm no significant axillary or epitrochlear nodes Objective Labs Result Diagrams: 07/05/19 05:12 07/05/19 05:12 Labs: Laboratory Results - last 24 hr 07/04/19 07/04/19 07/04/19 12:30 12:30 12:30 WBC 10.7 RBC 4.08 Hgb 12.1 Hct 36.9 MCV 90.4 MCH 29.7 MCHC 32.9 RDW 13.2 Plt Count 189 Neut % (Auto) 85.7 H Lymph % (Auto) 6.7 L [place] % (Auto) 6.9 Eos % (Auto) 0.3 L Baso % (Auto) 0.4 Neut # (Auto) 9200 H Lymph # (Auto) 700 L [place] # (Auto) 700 Eos # (Auto) 0 Baso # (Auto) 0 PT 43.4 H INR 3.8 H APTT 48 H Sodium Potassium Chloride Carbon Dioxide BUN Creatinine Estimated GFR BUN/Creatinine Ratio Glucose Calcium Magnesium Total Bilirubin AST ALT Alkaline Phosphatase Total Protein Albumin Globulin Albumin/Globulin Ratio Procalcitonin 0.18 07/04/19 07/05/19 07/05/19 12:30 05:12 05:12 WBC 6.7 RBC 3.58 L Hgb 10.8 L Hct 32.0 L MCV 89.3 MCH 30.1 MCHC 33.7 RDW 13.0 Plt Count 163 Neut % (Auto) 78.8 H Lymph % (Auto) 10.4 L [place] % (Auto) 8.9 Eos % (Auto) 1.4 L Baso % (Auto) 0.5 Neut # (Auto) 5200 Lymph # (Auto) 700 L [place] # (Auto) 600 Eos # (Auto) 100 Baso # (Auto) 0 PT 36.1 H D INR 3.2 H APTT 43 H D Sodium 136 L Potassium 4.1 Chloride 101 Carbon Dioxide 25 BUN 37 H Creatinine 1.10 H Estimated GFR 47.3 L BUN/Creatinine Ratio 33.6 H Glucose 97 Calcium 10.1 Magnesium Total Bilirubin 0.7 AST 33 ALT 21 Alkaline Phosphatase 73 Total Protein 7.5 Albumin 3.9 Globulin 3.6 Albumin/Globulin Ratio 1.1 Procalcitonin 07/05/19 05:12 WBC RBC Hgb Hct MCV MCH MCHC RDW Plt Count Neut % (Auto) Lymph % (Auto) [place] % (Auto) Eos % (Auto) Baso % (Auto) Neut # (Auto) Lymph # (Auto) [place] # (Auto) Eos # (Auto) Baso # (Auto) PT INR APTT Sodium 134 L Potassium 3.9 Chloride 101 Carbon Dioxide 25 BUN 29 H Creatinine 1.10 H Estimated GFR 47.3 L BUN/Creatinine Ratio 26.4 H Glucose 92 Calcium 9.0 Magnesium 1.9 Total Bilirubin AST ALT Alkaline Phosphatase Total Protein Albumin Globulin Albumin/Globulin Ratio Procalcitonin Assessment & Plan Assessment & Plan narrative: Impression is right arm cellulitis secondary to a cat bite, improving with antibiotics. Problem 2. Is over anticoagulation improving. Plan continue with antibiotics and probable discharge to home tomorrow after another 24 hours of IV antibiotics on oral antibiotics. She still has a chance of a developing a low-grade abscess but I think it is relatively unlikely at this point.
--- NOTE | 2019-07-05 12:42 | PC.NURSE ---
Pt resting in bed with right arm elevated above her head. HR up in the 160's per ICU when Pt ambulated to the bathroom to void. ordered Miralax for Pt but Pt declined and stated she hates that medication but was agreeable to drinking some prune juice in its place. Metoprolol initially held secondary to bp of 90's over 50s but then given when heart rate increased while up. BP also increased to 140's. Pt now resting comfortably and agrees to call for assistance as needed. Bed alarm on for safety. Pt calls appropriately.
--- NOTE | 2019-07-05 14:58 | CM.DANOTE ---
Discharge Planning/Care Management DCP: assessment: case received, EMR reviewed and met with pt. Introduced self and role. Pt is an 84 year old female who admitted yesterday to care of hospitalist team. Orthopedics: consulting: Dr. Churchill is following and has determined today that surgical procedure will not be needed. PCP: Khushboo Russ. Payer: Medicare and [facility] Admissions status: OBS: confirmed by [facility] RN Saeed. Pt confirms she is x 2 years (will update ACG as face sheet info is incorrect). The cat was her husbands, has bitten her 4 times over the years and her family have now moved the cat elsewhere. Pt expresses her relief re this. Pt's daughter lives next door to her and her son lives nearby. She has other family in the area and is very well supported. P: is for home tomorrow if pt continues to improve and on oral antibiotics. Pt confirms her daughter will be picking her up. CM Discharge Assessment Start: 07/05/19 14:57 Freq: Status: Active Protocol: Document 07/05/19 14:57 ITV (Rec: 07/05/19 14:58 ITV [id number]) Discharge Planning Assessment Advance Directives? Yes Advance Directives on File No History Provided By Patient,Medical Record Has Patient been admitted in last 30 No days? Prior Living Arrangements House Household Members none Independent with ADL's Yes Is patient alert and oriented? Yes Discharge Plan Home Community Services Oxygen Therapy Whiteboard Updated in Patient Room with Yes name and ext. # of Real Estate Listing Consultant Review Status In Process
[2019-07-05] MEDS: LOVASTATIN 20 MG TABLET PO (16:56)
[2019-07-05] MEDS: ALPRAZolam 0.5 MG TABLET PO (20:01)
[2019-07-05] MEDS: DOCUSATE 100 MG CAPSULE PO (20:01)
[2019-07-05] MEDS: METOPROLOL IR 25 MG TABLET PO (20:01)
--- NOTE | 2019-07-05 22:43 | PC.NURSE ---
Pt is A and O x 4, VSS, tachy at times, generally in SR with BBB. Her O2 saturation levels are > 93% at noc on 2L O2. He R FA is soft and paler, still raquel colored to just above the wrist, rarely painful and only warm.
[2019-07-06 00:25] VITALS: BP 114/65; PULSE 74; RESP 14; TEMP 36.3; O2SAT 95
[2019-07-06 03:00] VITALS: O2SAT 98
[2019-07-06] MEDS: MEROPENEM 1 GM/50 ML PIGGYBACK IV (03:56)
[2019-07-06 04:00] VITALS: BP 110/59; PULSE 100; RESP 14; TEMP 36.6; O2SAT 98
[2019-07-06 06:13] LABS: Add Manual Diff / Slide Review NO; Basophils Absolute Auto 0 /uL (0-100); Basophils Percent Auto 0.8 % (0-2); Eosinophils Absolute Auto 200 /uL (0-450); Eosinophils Percent Auto 4.2 % (2-4); Hematocrit 34.8 % (36-46); Hemoglobin 11.5 g/dL (12.0-16.0); Lymphocytes Absolute Auto 800 /uL (1100-4500); Lymphocytes Percent Auto 16.3 % (25-40); Mean Corpuscular HGB Conc 33.1 % (30-36); Mean Corpuscular Hemoglobin 29.7 PG (26-34); Mean Corpuscular Volume 89.7 fL (80-100); Monocytes Absolute Auto 600 /uL (0-900); Monocytes Percent Auto 11.7 % (3-14); Neutrophils Absolute Auto 3200 /uL (1500-7000); Platelet Count 173 X10^3/uL (150-400); Red Blood Cell Count 3.88 X10^6/uL (4.0-5.2); Red Cell Distribution Width 12.9 % (11.6-14.8); White Blood Cell Count 4.7 X10^3/uL (4.5-11.0)
[2019-07-06 06:15] LABS: INR 1.8 (0.9-1.3); Prothrombin Time 20.4 SECONDS (10.1-12.7)
[2019-07-06 06:18] LABS: PTT Partial Thromboplastin Tim 36 SECONDS (26.4-36.2)
[2019-07-06 06:21] LABS: Blood Urea Nitrogen 29 mg/dL (7-17); Calcium 9.2 mg/dL (8.4-10.2); Carbon Dioxide 29 mmol/L (22-32); Chloride 102 mmol/L (98-107); Estimated Glomerular Filt Rate 52.8 mL/min (>60); Glucose 87 mg/dL (80-110); HEMOLYSIS < 15 (0-50); Magnesium 1.9 mg/dL (1.6-2.3); Potassium 3.9 mmol/L (3.4-5.1); Sodium 136 mmol/L (137-145)
[2019-07-06 08:42] VITALS: BP 118/86; PULSE 133; RESP 18; TEMP 36.1; O2SAT 93
[2019-07-06 08:57] VITALS: O2SAT 93
[2019-07-06] MEDS: NIFEdipine 30 MG TAB ER 15 MG PO (09:06)
[2019-07-06] MEDS: MOMETASONE FORMOTEROL 2 EACH INH (09:06)
[2019-07-06] MEDS: MULTIVITAMIN 1 TABLET 1 TAB PO (09:06)
[2019-07-06] MEDS: DOCUSATE 100 MG CAPSULE PO (09:06)
[2019-07-06] MEDS: METOPROLOL IR 25 MG TABLET PO (09:07)
[2019-07-06] MEDS: SODIUM CHLORIDE 0.9% FLUSH 10 ML IV (09:07)
[2019-07-06] MEDS: POTASSIUM CHLORIDE 20 MEQ TAB PO (09:07)
--- NOTE | 2019-07-06 11:40 | PM.PN.1 ---
Subjective Subjective Date Patient Seen: 07/06/19 Time Patient Seen: 11:40 Interval history: Patient denies fever chills. No nausea vomiting. She notes the pain and swelling has significantly diminished since yesterday in the right wrist and hand. Exam Vital Signs (past 8 hours): - 07/06/19 04:00 07/06/19 08:42 07/06/19 08:57 Temperature 97.8 F 97.0 F L Pulse Rate 100 H 133 H Respiratory Rate 14 18 Blood Pressure 110/59 L 118/86 Pulse Oximetry 98 93 93 Oxygen Delivery Method Room Air Oxygen Flow Rate 0 Narrative Exam Narrative: Cat bite dorsum of the right wrist with mild erythema approximately 2 cm proximal and distal. Minimal discomfort with passive range of motion right wrist. Sensation grossly intact. Good capillary refill. Motor functions intact otherwise. Objective Labs Result Diagrams: 07/06/19 05:57 07/06/19 05:57 Labs: Laboratory Results - last 24 hr 07/06/19 07/06/19 07/06/19 05:57 05:57 05:57 WBC 4.7 RBC 3.88 L Hgb 11.5 L Hct 34.8 L MCV 89.7 MCH 29.7 MCHC 33.1 RDW 12.9 Plt Count 173 Neut % (Auto) 67.0 Lymph % (Auto) 16.3 L [place] % (Auto) 11.7 Eos % (Auto) 4.2 H Baso % (Auto) 0.8 Neut # (Auto) 3200 Lymph # (Auto) 800 L [place] # (Auto) 600 Eos # (Auto) 200 Baso # (Auto) 0 PT 20.4 H D INR 1.8 H APTT 36 D Sodium 136 L Potassium 3.9 Chloride 102 Carbon Dioxide 29 BUN 29 H Creatinine 1.00 Estimated GFR 52.8 L BUN/Creatinine Ratio 29.0 H Glucose 87 Calcium 9.2 Magnesium 1.9 Assessment & Plan Assessment & Plan narrative: Right arm cellulitis secondary to cat bite. Patient is improving. Hospitalist will be discharging patient today on appropriate antibiotics. Patient will be following up with her primary care provider. Patient is aware she will contact [facility] if any worsening. All questions answered patient and daughters both understood and were in agreement with this plan.
[2019-07-06 11:47] VITALS: BP 105/58; PULSE 86; RESP 16; TEMP 37.1; O2SAT 98
--- NOTE | 2019-07-06 11:48 | P.DS_ITS ---
History of Present Illness History of Present Illness Date Patient Seen: 07/04/19 Chief complaint: cat bite Narrative: Written by Dr. Green: Becka Amanda is an 84 year old female with severe COPD (on home O2 at night only), raynaud's, HTN, afib on coumadin who presented with worsening swelling in her right arm. Patient states that she suffered a cat bite 2 days ago. She went to an outside ER, who gave her Augmentin and discharged her home. She has a previous history of a cat bite requiring IV antibiotics. She took her Augmentin but the swelling continued to increase, ultimately up past her right elbow and down to her fingers, while the bite is on the forearm. Her cat is up-to-date on vaccinations. She does complain of decreased flexion in her fingers, but no numbness or tingling. There is marked swelling and redness. She denies any fevers or chills. She was nauseous on the drive to the emergency room, but did not have any emesis. She denies any abdominal pain, dysuria or urinary frequency. She denies any chest pain. She has no worsening or acute shortness of breath, but she is chronically short of breath and has difficulty going up any stairs at all due to her COPD. In the ER, she was mildly hypertensive but otherwise her vital signs were unremarkable. Her blood pressure has improved as well with pain control. She had a CT scan of her right upper extremity which showed a small collection of fluid along the dorsal aspect of the wrist may represent a developing abscess or could also potentially represent tenosynovitis involving the extensor tendons of the wrist. The need for dedicated MR imaging of the wrist with contrast may be determined clinically.She was seen by Dr. Churchill orthopedic surgery, who recommended admission for IV antibiotics as well as vitamin K for her elevated INR and potentially may take the patient to the operating room tomorrow. Discharge Providers Provider Date of admission: 07/04/19 14:49 Discharge Date: 07/06/19 Primary care physician: Shayy Novoa MD Consults: 07/04/19 17:20 Consult to Respiratory Therapy Evaluate & Treat Comment: Physician Instructions: Evaluate and treat 07/06/19 10:55 Consult to Orthopedic Surgery Routine Comment: assess hand Consulting Provider: Avani Churchill Reason for consultation: Cellulitis of hand Has provider been notified: Yes Discharge provider: Nayla Zamora DO Summary Hospital Course Discharge Diagnosis: 1. Acute right upper extremity cellulitis, present on admission. Active. 2. Severe COPD with nocturnal oxygen dependent, chronic, present on admission. Stable. 3. Supratherapeutic INR, acute, present on admission. Resolved. 4. Paroxysmal atrial fibrillation and SVT, chronic, present on admission. Stable. 5. Chronic kidney disease stage 3, present on admission. Stable. 6. Hypertension, chronic, present on admission. Stable. Hospital Course: luca Amanda is an 84-year-old female with a past medical history significant for hypertension, atrial fibrillation on warfarin, severe COPD on nocturnal oxygen, and who presented to the ED with worsening swelling in her right arm after she was bitten by her cat bite. 1. Acute right upper extremity cellulitis, present on admission. Active. -Patient developed worsening cellulitis after a cat bite 2 days ago. She failed outpatient Augmentin. -CT right upper extremity demonstrated subcutaneous edema of the right forearm and hand suspicious for cellulitis with small collection of fluid along the dorsal aspect of the wrist. Moderate to severe degenerative changes of the wrist and hand. 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 However, clinical correlation to exclude calcium pyro-phosphate deposition disease is recommended. -No leukocytosis and procalcitonin negative at 0.18. Continue to monitor WBC daily. -Received vitamin K 10 mg PO x1 in ED to reverse warfarin for possible surgical intervention. Held warfarin. -Continue acetaminophen 650 mg every 6 hours as needed for mild pain and hydrocodone 5-325 mg every 4 hours as needed for moderate to severe pain. Implemented bowel regimen to avoid opiate induced constipation. -Continue conservative measures including: Icing extremity 2 to 3 times a day no more than 20 minutes at a time and elevating extremity above level of the heart frequently and as much as tolerated. -Continue meropenem 1 g every 12 hours for broad-spectrum antibiotic coverage including anaerobes due to several antibiotic allergic reactions and interference with warfarin metabolism. Discharged on doxycycline 100 mg twice daily and metronidazole 500 mg 3 times daily for 7 additional days to complete 9 day total antibiotic course. -Consulted orthopedic surgery, Dr. Churchill, who does not recommend surgical intervention at this time. We appreciate her time and care of the patient. 2. Severe COPD with nocturnal oxygen dependent, chronic, present on admission. Stable. -Does not represent acute COPD exacerbation. -Continued home Dulera 2 puffs twice daily, albuterol inhaler 1-2 puffs every 4 hours as needed for shortness of breath and Daliresp if able to bring in from home. -Continued respiratory therapy evaluation and treatment. Continue 2L supplemental oxygen at bedtime. 3. Supratherapeutic INR, acute, present on admission. Resolved. -INR supratherapeutic at 3.8 on admission. Received vitamin K 10 mg PO for possible surgical interventions today. INR now 1.8. Resumed warfarin at time of discharge and instructed patient to follow up [facility] for repeat INR in the next 1 week. 4. Paroxysmal atrial fibrillation and SVT, chronic, present on admission. Stable. -Patient is currently in sinus rhythm. -Continued metoprolol tartrate 25 mg twice daily. -Held warfarin for possible surgical intervention and restarted at time of discharge. 5. Chronic kidney disease stage 3, present on admission. Stable. -Unknown baseline creatinine. Initial creatinine 1.10. Creatinine now 1 point -Continued to avoid nephrotoxin agents and renally dose medications as noted above. -Continued to monitor creatinine periodically. 6. Hypertension, chronic, present on admission. Stable. -Held triamterene and hydrochlorothiazide for possible operative interventions and labile blood pressure. Restarted at time of discharge. -Continued nifedipine 15 mg daily (extended release is not suppose to be crushed/split and patient and PCP aware) which is used for Raynaud's and will be continued. Exam Vital Signs (past 8 hours): - 07/06/19 04:00 07/06/19 08:42 07/06/19 08:57 Temperature 97.8 F 97.0 F L Pulse Rate 100 H 133 H Respiratory Rate 14 18 Blood Pressure 110/59 L 118/86 Pulse Oximetry 98 93 93 07/06/19 11:47 Temperature 98.8 F Pulse Rate 86 Respiratory Rate 16 Blood Pressure 105/58 L Pulse Oximetry 98 Oxygen Delivery Method Room Air Oxygen Flow Rate 0 Narrative Exam Narrative: General: Older female lying in bed and in no acute distress, well-developed, well-nourished, appropriately interactive. HEENT: Normocephalic, atraumatic. External ears without defect. Pupils equal, round, and reactive to light. Anicteric sclerae, moist conjunctivae, and no lid lag. Oropharynx with mild erythema, no exudate, and moist mucosa. Neck: Supple with full range of motion. No lymphadenopathy or thyromegaly. Cardiovascular: Regular rate and rhythm without murmurs, rubs, or gallops appreciated Pulmonary: Clear to auscultation bilaterally without crackles, wheezes, or rhonchi. Normal respiratory effort with no use of accessory muscles. Abdomen: Soft, bowel sounds present, nontender, nondistended. No hepatosplenomegaly or masses appreciated. Extremities: No clubbing, cyanosis, or edema. Erythema and warmth on dorsal aspect of right upper extremity retracting from mid forearm now down to wrist and hand with mild tenderness to palpation and bite pk on lateral aspect of right hand healing well. No obvious fluctuant mass or fluid collection. Skin: Normal temperature, turgor, and texture; no rash, ulcers, or subcutaneous nodules appreciated. Neurological: Cranial nerves grossly intact. Psychiatric: Normal mood and affect. Alert and oriented to person, place, and time. Objective Labs Result Diagrams: 07/06/19 05:57 07/06/19 05:57 Labs: Laboratory Results - last 24 hr 07/06/19 07/06/19 07/06/19 05:57 05:57 05:57 WBC 4.7 RBC 3.88 L Hgb 11.5 L Hct 34.8 L MCV 89.7 MCH 29.7 MCHC 33.1 RDW 12.9 Plt Count 173 Neut % (Auto) 67.0 Lymph % (Auto) 16.3 L Hendricks % (Auto) 11.7 Eos % (Auto) 4.2 H Baso % (Auto) 0.8 Neut # (Auto) 3200 Lymph # (Auto) 800 L Hendricks # (Auto) 600 Eos # (Auto) 200 Baso # (Auto) 0 PT 20.4 H D INR 1.8 H APTT 36 D Sodium 136 L Potassium 3.9 Chloride 102 Carbon Dioxide 29 BUN 29 H Creatinine 1.00 Estimated GFR 52.8 L BUN/Creatinine Ratio 29.0 H Glucose 87 Calcium 9.2 Magnesium 1.9 Discharge Plan Discharge Plan Patient Disposition: Home Discharge comment: You're being discharged home. You have cellulitis related to your cat bite of your right arm. You have been prescribed doxycycline 100 mg twice daily and metronidazole 500 mg 3 times daily for 7 days. You may take acetaminophen as needed for pain. Please elevate and ice your arm frequently. Please follow-up with your primary care physician at your scheduled appointment regarding yourr hospitalization and for INR check. Discharge orders & Medications Prescriptions: New acetaminophen 325 mg Tablet 650 mg PO Q6HR PRN (Reason: Fever/Mild Pain (1-3)) Qty: 30 RF: 0 doxycycline hyclate 100 mg Tablet 100 mg PO BID Qty: 14 RF: 0 metronidazole 500 mg tablet 500 mg PO TID Qty: 21 RF: 0 Continued nifedipine 30 MG tablet extended release 24hr 15 mg PO QDAY Qty: 0 RF: 0 triamterene-hydrochlorothiazid 37.5 MG/25 MG tablet 1.5 tab PO QDAY Qty: 0 RF: 0 potassium chloride [Klor-Con M20] 20 MEQ tablet,ER particles/crystals 20 meq PO BIDCC Qty: 0 RF: 0 lovastatin 20 MG tablet 20 mg PO QDAY Qty: 0 RF: 0 alprazolam 0.5 MG tablet 0.5 mg PO QDAY Qty: 0 RF: 0 magnesium oxide 400 MG tablet 400 mg PO DAILY Qty: 0 RF: 0 warfarin [Coumadin] 5 MG tablet 5 mg PO DAILY Qty: 0 RF: 0 multivitamin [Multiple Vitamins] 1 EACH tablet 1 tab PO QDAY Qty: 0 RF: 0 methylsulfonylmethane 500 mg capsule 500 mg PO QDAY Qty: 0 RF: 0 metoprolol tartrate 25 MG tablet 37.5 mg PO QDAY Qty: 0 RF: 0 cholecalciferol (vitamin D3) [Vitamin D3] 2,000 UNIT capsule 2 cap PO QDAY Qty: 0 RF: 0 Daliresp 500 MCG tablet 250 mg PO QDAY Qty: 0 RF: 0 Dulera 200 MCG/5 MCG HFA aerosol inhaler 2 puff INH BID Qty: 0 RF: 0 Premarin 0.625 MG/GM cream 0.5 kenan Vaginal SEE INSTRUCTIONS Qty: 0 RF: 0 cetirizine 10 MG tablet 10 mg PO PRN PRN (Reason: Allergy Symptoms) Qty: 0 RF: 0 albuterol sulfate [Proventil HFA] 90 MCG/PUFF HFA aerosol inhaler 1 - 2 puff INH Q4HP PRN (Reason: Shortness Of Breath Or Wheezing) Qty: 0 RF: 0 Follow up/Referrals: Shayy Novoa MD [Primary Care Provider] - 07/08/19 1:20 pm (follow up appointment on June 28 @13:20pm) Caleb Russ DO [Non-Staff] - 1 Week Diet/Activity/Treatments Diet: Diet as Tolerated Activity: Activity as tolerated Skin/Wound/Dressing Care Skin care: keep dry and clean, no antibiotic oinment Visit Report/Discharge Packet Instructions: DI for Cellulitis -- Adult, How To Perform RICE (Rest, Ice, Compress, Elevate), Doxycycline, Metronidazole Discharge Data Primary Care Provider: Shayy Novoa Attending Provider: Marcellus Green Date/Time: 07/04/19 14:49
[2019-07-06] MEDS: DOXYCYCLINE HYCLATE 100 MG TABLET PO (12:27)
--- NOTE | 2019-07-06 13:11 | PC.NURSE ---
Discharge: IV dc'd intact. Tele dc'd. Reviewed all d/c instructions and meds thoroughly with patient. Given scripts for Metronidazole and Doxycycline, no changes to home meds. Will f/u with her PCP on on the , but agrees to call MD or return to hospital if symptoms of cellulitis appear to be worsening rather than improving prior to follow up. Encouraged RICE. All personal belongings collected and sent with patient at discharge (cellphone, chargers, home inhaler, glasses, etc.). Patient verbalized understanding of d/c instructions and stated no further questions. Wheeled out to private vehicle by nursing staff.
== END 2019-07-06 13:15 | disposition home or self-care (01) ==
LOC: ED 11:01 → AC 14:51
PROVIDERS: Admitting Provider Internal Medicine; Emergency Provider Nurse Practitioner Family; PCP Family Medicine; Referring Provider Nurse Practitioner Family; Visit Provider Internal Medicine
DX: L03.113 Cellulitis of right upper limb (principal); M25.531 Pain in right wrist; W55.01XA Bitten by cat, initial encounter; Z79.01 Long term (current) use of anticoagulants; I10 Essential (primary) hypertension; N18.3 Chronic kidney disease, stage 3 (moderate); I48.0 Paroxysmal atrial fibrillation; J44.9 Chronic obstructive pulmonary disease, unspecified; Z99.81 Dependence on supplemental oxygen
CPT/HCPCS: 36415; 73201; 80048; 80053; 83735; 84145; 85025; 85610; 85730; 87040; 93005; 94760; 96365; 96366; 96367; 96375; 96376; 99284; G0378; J2270; J2405; J2543; Q9967

== ENCOUNTER 2019-07-15 13:44 | Emergency (ER) | payer MEDICARE, BC, SELFPAY ==
[2019-07-04 15:57] VITALS: BMI 20.5
[2019-07-15 13:45] VITALS: BP 129/97; PULSE 112; RESP 24; TEMP 36.9; O2SAT 99
--- NOTE | 2019-07-15 14:08 | ED_ITS ---
HPI - Nausea/Vomiting/Diarrhea General Chief complaint: Nausea/Vomiting/Diarrhea Stated complaint: C Diff, Afib Time Seen by Provider: 07/15/19 13:49 Source: patient and family Mode of arrival: Wheelchair Limitations: no limitations History of Present Illness HPI Narrative: Patient is an 84-year-old female. Recently admitted to our facility here for IV antibiotics after failing outpatient treatment of antibiotics for a cat bite. Patient states that since he was discharged from the hospital she has not felt very well. Today she stated that she felt like her heart was racing. She does have a history of AFib. Is on Coumadin. States she took her regular dose of metoprolol and afterwards still feeling like her heart was beating fast so she took a 2nd dose. Now she feels much better. She states that she has a home pulse oximeter and her heart rate was in the 170s. Had some chest discomfort shortness of breath with this. She also states that she is having diarrhea. No blood in her stool. No abdominal distention. No abdominal pain. She had C diff last year also after a course of antibiotics for a cat bite. Related Data Home Medications Medication Instructions Recorded Confirmed Daliresp 250 mg PO QDAY #0 06/13/17 07/04/19 Dulera 2 puff INH BID #0 06/13/17 07/04/19 albuterol sulfate [Proventil HFA] 1 - 2 puff INH Q4HP PRN #0 06/13/17 07/04/19 alprazolam 0.5 mg PO QDAY #0 06/13/17 07/04/19 cetirizine 10 mg PO PRN PRN #0 06/13/17 07/04/19 cholecalciferol (vitamin D3) 2 cap PO QDAY #0 06/13/17 07/04/19 [Vitamin D3] lovastatin 20 mg PO QDAY #0 06/13/17 07/04/19 magnesium oxide 400 mg PO DAILY #0 06/13/17 07/04/19 methylsulfonylmethane 500 mg PO QDAY #0 06/13/17 07/04/19 metoprolol tartrate 37.5 mg PO QDAY #0 06/13/17 07/04/19 multivitamin [Multiple Vitamins] 1 tab PO QDAY #0 06/13/17 07/04/19 nifedipine 15 mg PO QDAY #0 06/13/17 07/04/19 potassium chloride [Klor-Con M20] 20 meq PO BIDCC #0 06/13/17 07/04/19 triamterene-hydrochlorothiazid 1.5 tab PO QDAY #0 06/13/17 07/04/19 conjugated estrogens [Premarin] 0.3125 mg PO 2XW 07/15/19 07/15/19 warfarin 2.5 mg PO TUTH 07/15/19 07/15/19 warfarin 5 mg PO SUMOWEFRSA 07/15/19 07/15/19 Previous Rx's Medication Instructions Recorded acetaminophen 650 mg PO Q6HR PRN #30 tab 07/06/19 metronidazole 500 mg PO TID #21 tab 07/06/19 Allergies Allergy/AdvReac Type Severity Reaction Status Date / Time amoxicillin [AMOXICILLIN] Allergy Unknown Verified 07/15/19 13:58 erythromycin base Allergy Unknown Verified 07/15/19 13:58 [ERYTHROMYCIN BASE] levofloxacin [From LEVAQUIN] Allergy Unknown Verified 07/15/19 13:58 Review of Systems Constitutional Constitutional: Denies headache(s) ENT Ears, Nose, Mouth, and Throat: Denies headache(s) Cardiovascular Cardiovascular: Reports chest pain, Reports rapid heart rate, Reports palpitations and Reports dyspnea on exertion Respiratory Respiratory: Denies cough and Reports dyspnea on exertion Gastrointestinal Gastrointestinal: Denies abdominal pain, Reports diarrhea, Denies nausea and Denies vomiting Genitourinary Comments: Burning with urination Musculoskeletal Musculoskeletal: Denies myalgias and Denies arthralgias Integumentary/Breasts Skin/Breast: Denies lesions and Denies rash Neurologic Neurologic: Denies behavioral changes and Denies headache(s) Psychiatric Psychiatric: Denies behavioral changes Endocrine Endocrine: Reports palpitations Hematologic/Lymphatic Hematologic/Lymphatic: Denies easy bleeding and Denies easy bruising Patient History Medical History Atrial fibrillation (Inactive) Cat bite (Inactive) Cellulitis (Inactive) Social History household members: none Smoking Status: Former smoker alcohol intake: current Smoking Status: Former smoker alcohol intake frequency: 0-2 drinks per day Substance Use Type: does not use Exam Initial Vital Signs Initial Vital Signs: Vital Signs Temperature 98.4 F 07/15/19 13:45 Pulse Rate 112 H 07/15/19 13:45 Respiratory Rate 24 07/15/19 13:45 Blood Pressure 129/97 H 07/15/19 13:45 Pulse Oximetry 99 07/15/19 13:45 Const General: cooperative, comfortable and well developed Limitations: mental status not altered HENMT Head: normal to inspection and normocephalic Resp Effort & Inspection: normal respiratory effort Auscultation: clear to auscultation bilaterally Cardio Rate: regular rate Rhythm: abnormal rhythm Pulses: radial pulses present GI Inspection: non-distended Palpation: soft and No firm Skin Lesions: no lesions Rashes: no rashes Neuro General: alert, awake and oriented x3 Cognition: normal cognition Speech: speech normal Gait: normal gait Extrem General: normal to inspection and capillary refill normal Psych Appearance: grossly normal and well kempt Course Orders Ordered: ED Orders 07/15/19 13:50 GI Panel (Film Array) Stat EKG-12 Lead Stat 07/15/19 14:15 Complete Blood Count AUTO DIFF Stat Comprehensive Metabolic Panel Stat Lactate (Lactic Acid) Stat Lipase Stat Partial Thromboplastin Time Stat Procalcitonin Stat Prothrombin Time INR Stat Troponin I Stat 07/15/19 14:43 Urine Culture Stat Urine Microscopic Stat Sodium Chloride (Normal Saline 0.9%) 1,000 mls @ 150 mls/hr IV CONT DONA Vital Signs Vital signs: Vital Signs - 8 hr 07/15/19 13:45 07/15/19 15:22 Temperature 98.4 F Pulse Rate 112 H 99 H Respiratory Rate 24 13 Blood Pressure 129/97 H Blood Pressure [Right Arm] 116/84 Pulse Oximetry 99 97 MDM - Nausea/Vomiting/Diarrhea Lab Data Attestation: I reviewed the patient's lab results. Result diagrams: 07/15/19 14:15 07/15/19 14:15 Labs: Lab Results 07/15/19 07/15/19 07/15/19 Range/Units 14:15 14:15 14:15 WBC 8.9 (4.5-11.0) X10^3/uL RBC 4.51 (4.0-5.2) X10^6/uL Hgb 13.4 (12.0-16.0) g/dL Hct 39.7 (36-46) % MCV 88.0 (80-100) fL MCH 29.7 (26-34) PG MCHC 33.8 (30-36) % RDW 12.9 (11.6-14.8) % Plt Count 331 (150-400) X10^3/uL Neut % (Auto) 72.6 (50-75) % Lymph % (Auto) 17.7 L (25-40) % [place] % (Auto) 6.9 (3-14) % Eos % (Auto) 1.4 L (2-4) % Baso % (Auto) 1.4 (0-2) % Neut # (Auto) 6400 (5387-2524) /uL Lymph # (Auto) 1600 (5794-4419) /uL [place] # (Auto) 600 (0-900) /uL Eos # (Auto) 100 (0-450) /uL Baso # (Auto) 100 (0-100) /uL PT 41.8 H D (10.1-12.7) SECONDS INR 3.7 H (0.9-1.3) APTT 54 H D (26.4-36.2) SECONDS Sodium 136 L (137-145) mmol/L Potassium 4.6 (3.4-5.1) mmol/L Chloride 103 (98-107) mmol/L Carbon Dioxide 23 (22-32) mmol/L BUN 20 H (7-17) mg/dL Creatinine 1.00 (0.52-1.04) mg/dL Estimated GFR 52.8 L (>60) mL/min BUN/Creatinine Ratio 20.0 (6-22) Glucose 111 H (80-110) mg/dL Lactate (0.7-2.1) mmol/L Calcium 10.1 (8.4-10.2) mg/dL Total Bilirubin 0.4 (0.2-1.3) mg/dL AST 41 H (14-36) IU/L ALT 30 (<35) IU/L Alkaline Phosphatase 82 (38-126) U/L Troponin I < 0.012 (0.01-0.034) ng/mL Total Protein 7.7 (6.3-8.2) g/dL Albumin 4.0 (3.5-5.0) g/dL Globulin 3.7 (1.7-4.1) g/dL Albumin/Globulin Ratio 1.1 (1.0-2.8) Lipase 190 (23-300) U/L Procalcitonin (<0.5) ng/mL Urine RBC (0-5/HPF) Urine WBC (0-5/HPF) Ur Squamous Epith Cells (0-5/HPF) Urine Bacteria (None) Ur Culture Indicated? 07/15/19 07/15/19 07/15/19 Range/Units 14:15 14:15 14:43 WBC (4.5-11.0) X10^3/uL RBC (4.0-5.2) X10^6/uL Hgb (12.0-16.0) g/dL Hct (36-46) % MCV (80-100) fL MCH (26-34) PG MCHC (30-36) % RDW (11.6-14.8) % Plt Count (150-400) X10^3/uL Neut % (Auto) (50-75) % Lymph % (Auto) (25-40) % [place] % (Auto) (3-14) % Eos % (Auto) (2-4) % Baso % (Auto) (0-2) % Neut # (Auto) (9357-8132) /uL Lymph # (Auto) (1718-9530) /uL [place]ett # (Auto) (0-900) /uL Eos # (Auto) (0-450) /uL Baso # (Auto) (0-100) /uL PT (10.1-12.7) SECONDS INR (0.9-1.3) APTT (26.4-36.2) SECONDS Sodium (137-145) mmol/L Potassium (3.4-5.1) mmol/L Chloride (98-107) mmol/L Carbon Dioxide (22-32) mmol/L BUN (7-17) mg/dL Creatinine (0.52-1.04) mg/dL Estimated GFR (>60) mL/min BUN/Creatinine Ratio (6-22) Glucose (80-110) mg/dL Lactate 1.5 (0.7-2.1) mmol/L Calcium (8.4-10.2) mg/dL Total Bilirubin (0.2-1.3) mg/dL AST (14-36) IU/L ALT (<35) IU/L Alkaline Phosphatase (38-126) U/L Troponin I (0.01-0.034) ng/mL Total Protein (6.3-8.2) g/dL Albumin (3.5-5.0) g/dL Globulin (1.7-4.1) g/dL Albumin/Globulin Ratio (1.0-2.8) Lipase (23-300) U/L Procalcitonin < 0.05 (<0.5) ng/mL Urine RBC None seen (0-5/HPF) Urine WBC 1-5/hpf (0-5/HPF) Ur Squamous Epith Cells 5-10 /hpf H (0-5/HPF) Urine Bacteria Occasional (0-1) (None) Ur Culture Indicated? Specimen cultured Urine Dip Bedside Urine Glucose Negative Bedside Urine Bilirubin - Negative Bedside Urine Ketone - Negative Urine Specific [place] 1.015 Bedside Urine Occult Blood - Negative Bedside Urine pH 8.0 Bedside Urine Protein +/- 15 Bedside Urine Urobilinogen - Negative Bedside Urine Nitrite - Negative Bedside Urine Leukocytes +/- 15 Esterase ECG Data Attestation: I personally reviewed and interpreted this ECG as follows: Prior ECG tracings: not available for review Interpretation: Atrial fibrillation Ventricular rate of 96 Normal QRS Normal axis No ST T wave changes MDM Narrative Medical decision making narrative: Patient's INR is 3.7. She was scheduled to have her INR drawn today by her primary provider for evaluation. She was given a copy of her labs so that she could call her primary doctor tomorrow to discuss which she should do. I did recommend that she skip her dose of Coumadin this evening. She expressed understanding of this. Patient is AFib. She is rate controlled for the majority of the time here in the ER with a rate in the 80s and 90s. She is not having chest pain. I do not feel that we need to cardiovert the patient. She is on medication for rate control. She was given return precautions with regard to this. Patient has a benign abdominal exam. She was unable to provide us a stool sample. She has a normal white count. Normal lactate. Normal procalcitonin. Normal creatinine. I do have low suspicion for C diff given all of this. Patient stated that she would like to go home and contact her primary doctor about potentially having an outpatient studies done for C diff. I did not feel this is unreasonable. I feel we should hold on antibiotics for now. She is on probiotics. We did discuss return precautions and follow-up instructions. She expressed understanding and agreement. Discharge Plan Departure Patient Disposition: Home Clinical Impression: Diarrhea Qualifiers: Diarrhea type: unspecified type Qualified Code(s): R19.7 - Diarrhea, unspecified Instructions: Diarrhea Activity Restrictions/Additional Instructions: Your INR today was 3.7. I recommend that you skip your dose of Coumadin this evening and contact your primary doctor tomorrow about further instructions. Continue the rest of your medications as directed. Be sure to increase your fluid intake. I recommend that you avoid taking any anti diarrheal medications. I do recommend that you talk with your primary provider about outpatient testing for C diff especially if your symptoms do not improve. Return to the emergency department for any new or worsening symptoms Prescriptions: No Action nifedipine 30 MG tablet extended release 24hr 15 mg PO DAILY Qty: 0 RF: 0 triamterene-hydrochlorothiazid 37.5 MG/25 MG tablet 1 tab PO DAILY Qty: 0 RF: 0 potassium chloride [Klor-Con M20] 20 MEQ tablet,ER particles/crystals 20 meq PO BIDCC Qty: 0 RF: 0 lovastatin 20 MG tablet 20 mg PO DAILY Qty: 0 RF: 0 alprazolam 0.5 MG tablet 0.5 mg PO QDAY Qty: 0 RF: 0 magnesium oxide 400 MG tablet 400 mg PO BEDTIME Qty: 0 RF: 0 multivitamin [Multiple Vitamins] 1 EACH tablet 1 tab PO QDAY Qty: 0 RF: 0 methylsulfonylmethane 500 mg capsule 500 mg PO QDAY Qty: 0 RF: 0 metoprolol tartrate 25 MG tablet 25 mg PO BID Qty: 0 RF: 0 cholecalciferol (vitamin D3) [Vitamin D3] 2,000 UNIT capsule 2 cap PO QDAY Qty: 0 RF: 0 Daliresp 500 MCG tablet 250 mg PO DAILY Qty: 0 RF: 0 Dulera 200 MCG/5 MCG HFA aerosol inhaler 2 puff INH BID Qty: 0 RF: 0 cetirizine 10 MG tablet 10 mg PO PRN PRN (Reason: Allergy Symptoms) Qty: 0 RF: 0 albuterol sulfate [Proventil HFA] 90 MCG/PUFF HFA aerosol inhaler 1 - 2 puff INH Q4HP PRN (Reason: Shortness Of Breath Or Wheezing) Qty: 0 RF: 0 warfarin 5 mg tablet 5 mg PO SUMOWEFRSA RF: 0 warfarin 5 mg tablet 2.5 mg PO TUTH RF: 0 Premarin 0.625 mg tablet 0.3125 mg PO 2XW RF: 0 acetaminophen 325 mg Tablet 650 mg PO Q6HR PRN (Reason: Fever/Mild Pain (1-3)) Qty: 30 RF: 0 metronidazole 500 mg tablet 500 mg PO TID Qty: 21 RF: 0 Referrals: Caleb Russ DO [Primary Care Provider] -
[2019-07-15 14:23] LABS: Add Manual Diff / Slide Review NO; Basophils Absolute Auto 100 /uL (0-100); Basophils Percent Auto 1.4 % (0-2); Eosinophils Absolute Auto 100 /uL (0-450); Eosinophils Percent Auto 1.4 % (2-4); Hematocrit 39.7 % (36-46); Hemoglobin 13.4 g/dL (12.0-16.0); Lymphocytes Absolute Auto 1600 /uL (1100-4500); Lymphocytes Percent Auto 17.7 % (25-40); Mean Corpuscular HGB Conc 33.8 % (30-36); Mean Corpuscular Hemoglobin 29.7 PG (26-34); Monocytes Absolute Auto 600 /uL (0-900); Monocytes Percent Auto 6.9 % (3-14); Neutrophils Absolute Auto 6400 /uL (1500-7000); Neutrophils Percent Auto 72.6 % (50-75); Platelet Count 331 X10^3/uL (150-400); Red Blood Cell Count 4.51 X10^6/uL (4.0-5.2); Red Cell Distribution Width 12.9 % (11.6-14.8); White Blood Cell Count 8.9 X10^3/uL (4.5-11.0)
[2019-07-15 14:30] LABS: INR 3.7 (0.9-1.3); Prothrombin Time 41.8 SECONDS (10.1-12.7)
[2019-07-15 14:32] LABS: PTT Partial Thromboplastin Tim 54 SECONDS (26.4-36.2)
[2019-07-15 14:35] LABS: Alanine Aminotransferase 30 IU/L (<35); Albumin Globulin Ratio 1.1 (1.0-2.8); Alkaline Phosphatase 82 U/L (38-126); Aspartate Aminotransferase 41 IU/L (14-36); Bilirubin Total 0.4 mg/dL (0.2-1.3); Blood Urea Nitrogen 20 mg/dL (7-17); Calcium 10.1 mg/dL (8.4-10.2); Carbon Dioxide 23 mmol/L (22-32); Chloride 103 mmol/L (98-107); Estimated Glomerular Filt Rate 52.8 mL/min (>60); Globulin 3.7 g/dL (1.7-4.1); Glucose 111 mg/dL (80-110); HEMOLYSIS 19 (0-50); Lipase 190 U/L (23-300); Potassium 4.6 mmol/L (3.4-5.1); Sodium 136 mmol/L (137-145); Total Protein 7.7 g/dL (6.3-8.2)
[2019-07-15 14:37] LABS: Lactate (Lactic Acid) 1.5 mmol/L (0.7-2.1)
[2019-07-15 14:47] LABS: Troponin I < 0.012 ng/mL (0.01-0.034)
[2019-07-15 14:56] LABS: RBC Urine None Seen (0-5/HPF)
[2019-07-15 14:58] LABS: Procalcitonin < 0.05 ng/mL (<0.5)
[2019-07-15 15:13] LABS: Bacteria Urine Occasional (0-1); Squamous Epithelial Cell Urine 5-10 /HPF (0-5/HPF); WBC Urine 1-5/HPF (0-5/HPF)
[2019-07-15 15:14] LABS: Culture Indicated Urine Specimen Cultured
[2019-07-15 15:22] VITALS: BP 116/84; PULSE 99; RESP 13; O2SAT 97
[2019-07-15 16:47] VITALS: BP 123/69; PULSE 92; RESP 29; O2SAT 97
== END 2019-07-15 16:49 | disposition home or self-care (01) ==
PROVIDERS: Emergency Provider Emergency Medicine; PCP Family Medicine
DX: R19.7 Diarrhea, unspecified (principal); R07.9 Chest pain, unspecified; I48.91 Unspecified atrial fibrillation; Z79.01 Long term (current) use of anticoagulants
CPT/HCPCS: 80053; 81003; 81015; 83605; 83690; 84145; 84484; 85025; 85610; 85730; 87077; 87086; 87186; 93005; 93010; 99284